=== PATIENT | male | born 1955 | race Caucasian/White ===

== ENCOUNTER → 2022-03-12 | Outpatient (CLI) | payer MEDICARE, SELFPAY ==
--- NOTE | 2022-03-12 06:46 | CT_ITS ---
HISTORY: HYDROCELE. TECHNIQUE: Helically acquired images were obtained of the abdomen and pelvis without oral or IV contrast. A radiation dose optimization technique was used for this scan. 555 images. COMPARISON: None.. FINDINGS: LOWER CHEST: Lung bases clear. BOWEL: Bowel including appendix nondilated. Colonic diverticulosis without focal pericolonic inflammatory change. PERITONEUM: No significant free fluid. LIVER/SPLEEN: Nonenlarged. GALLBLADDER/BILIARY TREE: Gallbladder present. KIDNEYS AND URETERS: No nephrolithiasis or hydronephrosis. PANCREAS/ADRENAL GLANDS: Unremarkable. VESSELS: No abdominal aortic aneurysm. Mild atherosclerosis. PELVIC ORGANS: Unremarkable. ABDOMINAL WALL: Large left inguinal hernia containing sigmoid colon extending into the scrotum without colonic wall thickening or surrounding inflammatory change. Trace left scrotal hydrocele. Large right inguinal hernia containing small bowel extending into the scrotum without small bowel wall thickening or surrounding inflammatory change. Tiny fat-containing umbilical hernia. BONES: Mild degenerative change. CT/Abdomen/Pelvis without Cont IMPRESSION: Large left inguinal hernia containing colon extending into the scrotum without evidence for colonic obstruction. Trace left scrotal hydrocele. Large right inguinal hernia containing small bowel extending into the scrotum without evidence for small bowel obstruction. Colonic diverticulosis without acute diverticulitis. Electronically Signed: Madeline Sloan MD at 9:23 EDT ,
== END | disposition home or self-care (01) ==
PROVIDERS: Referring Provider Urology; Visit Provider Urology
DX: N43.3 Hydrocele, unspecified (principal); K40.20 Bilateral inguinal hernia, without obstruction or gangrene, not specified as recurrent; K57.30 Diverticulosis of large intestine without perforation or abscess without bleeding
CPT/HCPCS: 74176; Q9967

== ENCOUNTER → 2022-03-27 | Outpatient (CLI) | payer MEDICARE, SELFPAY ==
--- NOTE | 2022-03-27 08:00 | PROSBIL_PTH ---
PATIENT: CAROLYN NUÑEZ LOC: [facility] U#:[id number] AGE/SX: 67/M ROOM: RE03/27/[address]: Dr. Jesus Brock MD : 1955 BED: DIS: 03/27/2022 SPEC #: [id number] RECD: 03/27/22 16:00 STATUS: ROBINSON REBennett #: [id number] TAMI: 03/27/22 08:[address]: Jesus Brock DEPT: SURGICAL PATHOLOGY RECD BY: Sharmin Ledesma ENTERED: 03/28/22 07:49 SP TYPE: PROST BX WILBERT DR: CHERYL High Tissues: A - PROSTATE RIGHT B - PROSTATE RIGHT C - PROSTATE RIGHT D - PROSTATE LEFT E - PROSTATE LEFT F - PROSTATE LEFT Procedures: PROSTATE BX HEADER OPERATION: Prostate biopsy PRE-OP DIAGNOSIS: Elevated PSA TISSUE SUBMITTED: A - Right apex, B - Right mid, C - Right base, D - Left apex, E - Left mid, F - Left base MICROSCOPIC DIAGNOSIS A. Right prostate, apex, core biopsy: Prostatic tissue, negative for malignancy. Focal atrophy and mild chronic inflammation. B. Right prostate, mid, core biopsy: Prostatic tissue, negative for malignancy. C. Right prostate, base, core biopsy: Prostatic tissue, negative for malignancy. D. Left prostate, apex, core biopsy: Prostatic tissue, negative for malignancy. Focal atrophy and mild chronic inflammation. E. Left prostate, mid, core biopsy: Prostatic tissue, negative for malignancy. Focal atrophy and mild chronic inflammation. F. Left prostate, base, core biopsy: Prostatic tissue, negative for malignancy. Focal mild chronic inflammation. /JANENE 03/31/22 MICROSCOPIC DESCRIPTION Slides are reviewed. GROSS DESCRIPTION A - Received is one container designated prostate, right apex. The specimen consists of two elongated fragments of light ely-white soft tissue measuring 1.3 and 1.8 cm in length and 0.1 cm in diameter. The specimen is totally submitted in one cassette. B - Received is one container designated prostate, right mid. The specimen consists of two elongated fragments of light ely-white soft tissue measuring 1 and 1.8 cm in length and 0.1 cm in diameter. The specimen is totally submitted in one cassette. C - Received is one container designated prostate, right base. The specimen consists of two elongated fragments of light ely-white soft tissue measuring 1.3 and 1.8 cm in length and 0.1 cm in diameter. The specimen is totally submitted in one cassette. D - Received is one container designated prostate, left apex. The specimen consists of two elongated fragments of light ely-white soft tissue each measuring 1.8 cm in length and 0.1 cm in diameter. The specimen is totally submitted in one cassette. E - Received is one container designated prostate, left mid. The specimen consists of two elongated fragments of light ely-white soft tissue each measuring 1.5 cm in length and 0.1 cm in diameter. The specimen is totally submitted in one cassette. F - Received is one container designated prostate, left base. The specimen consists of two elongated fragments of light ely-white soft tissue measuring 1 and 1.6 cm in length and 0.1 cm in diameter. The specimen is totally submitted in one cassette. / SJ:rg 03/28/2022 TC:3 CPT: G0146
== END | disposition home or self-care (01) ==
LOC: LABSPEC 16:49
PROVIDERS: Referring Provider Urology; Visit Provider Urology
DX: R97.20 Elevated prostate specific antigen [PSA] (principal)
CPT/HCPCS: 88305; G0416

== ENCOUNTER 2024-11-12 08:57 | Emergency (ER) | payer MEDICARE, SELFPAY ==
[2024-11-12] VITALS (13 sets, daily range): BP systolic 100–150; BP diastolic 47–113; PULSE 88–109; RESP 16–20; TEMP 36.6–38.8; O2SAT 93–100; BMI 32.5
--- NOTE | 2024-11-12 09:30 | CT_ITS ---
PROCEDURE: ABDOMEN/PELVIS W IV CONT ONLY 11/12/2024 REASON FOR EXAM: ABDOMINAL PAIN TECHNIQUE: ABDOMEN/PELVIS W IV CONT ONLY Coronal and Sagittal reconstruction series were provided. CONTRAST: 100 mL of Isovue 370 One or more dose reduction techniques were used (e.g., Automated exposure control, adjustment of the mA and/or kV according to patient size, use of iterative reconstruction technique. RADIATION DOSE SUMMARY: DLP: 1420 mGycm COMPARISON: 03/12/2022 FINDINGS: Limited sections of the lung bases demonstrate no focal pulmonary mass or consolidations. Bibasilar subsegmental atelectasis. The liver, spleen, pancreas, and both adrenal glands demonstrate no acute findings. The gallbladder is unremarkable. Stomach is fluid-filled with distended fluid-filled distal esophagus. Bilateral large inguinal hernias containing bowel. The right inguinal hernia containing small bowel and proximal colon with inflammation, fluid, and thickened and inflamed small bowel loops concerning for strangulation. Degree of small bowel wall inflammation concerning for enteritis of possibly ischemic etiology. Proximal to the right inguinal hernia, the small bowel loops are dilated measuring up to 4.3 cm with air and fluid filled layering concerning for small bowel obstruction. The left inguinal hernia contains large bowel without evidence of strangulation or obstruction. Appendix appears to be within the right inguinal hernia with appendicolith noted and slight inflammation although this is likely reactive to surrounding inflamed tissue. No pneumoperitoneum. The kidneys are unremarkable. The urinary bladder is nondistended. The pelvic structures are intact. There is no solid pelvic mass. Prostatomegaly to 5.2 cm. No significant lymphadenopathy. The aorta and IVC demonstrate no acute findings. Moderate atherosclerosis of the abdominal vasculature. Visualized osseous structures demonstrate no acute abnormality. CT/Abdomen/Pelvis W IV Cont ONLY IMPRESSION: The right inguinal hernia containing small bowel and proximal colon with inflam mation, fluid, and thickened and inflamed small bowel loops concerning for strangulation. Degree of small bowel wall inflammat ion concerning for enteritis of possibly ischemic etiology. Close loop within the right inguinal hernia is not entirely excluded . Proximal to the right inguinal hernia, the small bowel loops are dilated measuring up to 4.3 cm with air and fluid filled layering concerning for small bowel obstruction. The left inguinal hernia contains large bowel without evidence of strangulation or obstruction. Dr. Villegas was notified by Nadia Ortiz at 10:54 a.mJoss EST on 11/12/2024. Reading Location: [id number]
--- NOTE | 2024-11-12 09:33 | ED.VIS.GI ---
HPI <Dr. Shahbaz Villegas DO - Last Filed: 11/12/24 17:09> HPI - GI History of Present Illness Chief Complaint: Abd Pain Abdominal Pain/Flank Pain Worsened by: Nothing Relieved by: Nothing Nausea/Vomiting/Emesis GI Symptom: Positive for Nausea and Vomiting Quality: Positive for Nonbilious; Negative for Blood streaks, Coffee ground or Hematemesis Diarrhea/Melena/Hematochezia GI Symptom: Positive for Diarrhea and Melena; Negative for Hematochezia Stool Quality: Positive for Watery Associated Symptoms Associated Symptoms: Negative for Dysuria or Frequency Narrative Narrative: Patient presents with abdominal pain that has been getting worse over the last 5 days. Patient states it is gradually getting worse. Patient describes it as stabbing and dull. Patient states it radiates into his back. Patient states it is diffuse across his entire abdomen but worse in the lower abdomen and inguinal area. Patient states he has a known inguinal hernia but thinks it may be incarcerated or strangulated. Patient admits to some nausea and vomiting. Patient states his emesis is just yellow emesis. Patient admits to some diarrhea. Patient states he was having some black diarrhea couple days ago but states this is now just watery. Patient denies any urinary complaints. Patient admits to some subjective fevers. [facility] <Dr. Shahbaz Villegas DO - Last Filed: 11/12/24 17:09> [facility] Medical History (Updated 11/12/24 @ 11:[address] Shahbaz Villegas DO) Right inguinal hernia Allergy/AdvReac Type Severity Reaction Status Date / Time No Known Allergies Allergy Verified 11/12/24 09:43 Surgical History no surgical history no surgical history Social History Smoking Status: Never smoker ROS <Dr. Shahbaz Villegas DO - Last Filed: 11/12/24 17:09> ROS ED Constitutional Constitutional ED: Reports fever(s) and subjective; Denies chills Eyes Eyes: Denies blurry vision or change in vision ENT ENT ED: Denies rhinorrhea or sore throat Cardiovascular Cardiovascular: Denies chest pain or palpitations Respiratory/Chest Respiratory/Chest: Denies cough or dyspnea Gastrointestinal Gastrointestinal: Reports abdominal pain, diarrhea, nausea and vomiting Genitourinary Genitourinary ED: Denies dysuria or hematuria Musculoskeletal Musculoskeletal: Reports back pain; Denies neck pain Integumentary Denies abscess or rash Neurologic Neurologic: Denies headache(s) or weakness Allergic/Immunologic Allergic/Immunologic ED: Denies mouth swelling or urticaria EXAM <Dr. Shahbaz Villegas, DO - Last Filed: 11/12/24 17:09> Physical Exam Const Vital Signs: 11/12/24 08:57 11/12/24 10:59 11/12/24 11:00 Temperature 97.9 F 98.2 F 98.2 F Temperature Source Oral Temporal Temporal Pulse Rate 109 H 88 104 H Respiratory Rate 18 17 16 Blood Pressure 122/86 H 125/81 H 125/81 H Blood Pressure Mean 98 95 95 Pulse Ox 99 98 94 Oxygen Delivery Method Room Air Room Air Room Air 11/12/24 12:19 11/12/24 13:00 11/12/24 14:00 Temperature 100.7 F H 99.2 F H 99 F Temperature Source Oral Oral Oral Pulse Rate 96 99 101 H Respiratory Rate 18 18 20 H Blood Pressure 133/72 H 150/94 H 115/47 L Blood Pressure Mean 92 112 69 Pulse Ox 96 96 93 Oxygen Delivery Method Room Air Room Air Room Air 11/12/24 15:00 11/12/24 16:00 11/12/24 17:00 Temperature 99 F 101.6 F H 101.3 F H Temperature Source Oral Oral Oral Pulse Rate 102 H 106 H 102 H Respiratory Rate 18 18 18 Blood Pressure 118/59 L 141/113 H 125/89 H Blood Pressure Mean 76 122 101 Pulse Ox 100 93 94 Oxygen Delivery Method Room Air Room Air Room Air 11/12/24 18:00 11/12/24 19:00 11/12/24 20:00 Temperature 100.9 F H 101.8 F H 101.5 F H Temperature Source Oral Oral Oral Pulse Rate 106 H 98 107 H Respiratory Rate 18 18 18 Blood Pressure 130/72 H 133/73 H 100/86 H Blood Pressure Mean 91 93 90 Pulse Ox 94 93 94 Oxygen Delivery Method Room Air Room Air Room Air 11/12/24 20:00 Temperature 101.5 F H Temperature Source Pulse Rate 108 H Respiratory Rate 18 Blood Pressure 100/86 H Blood Pressure Mean 90 Pulse Ox 95 Oxygen Delivery Method Positive well nourished and well developed General Appearance ED: well developed and NAD HEENT Reports moist mucous membranes normocephalic and atraumatic Neck supple and no JVD Resp normal respiratory effort and clear to auscultation bilaterally Cardio regular rhythm Rate: tachycardic GI GI Narrative: There is a large right inguinal hernia. There is a left inguinal hernia. There is tenderness over the inguinal areas bilaterally, worse on the right. Bowel sounds are slightly hyperactive. There is increased pitch to the bowel sounds. Inspection: abdominal distention Palpation: tender epigastric, LLQ, RLQ, LUQ, RUQ, periumbilical and suprapubic Extremity Extremity Narrative: Pedal pulses are equal bilaterally. General Extremety ED: Negative for edema or tenderness General Extremity: Negative for edema Neuro CN's II-XII intact bilaterally, moves all extremities and no sensory deficits noted Sensorium / Orientation: alert Motor Exam: strength 5/5 throughout Psych mental status grossly normal <Dr. George Abraham MD - Last Filed: 11/12/24 20:34> Physical Exam Const Vital Signs: 11/12/24 08:57 11/12/24 10:59 11/12/24 11:00 Temperature 97.9 F 98.2 F 98.2 F Temperature Source Oral Temporal Temporal Pulse Rate 109 H 88 104 H Respiratory Rate 18 17 16 Blood Pressure 122/86 H 125/81 H 125/81 H Blood Pressure Mean 98 95 95 Pulse Ox 99 98 94 Oxygen Delivery Method Room Air Room Air Room Air 11/12/24 12:19 11/12/24 13:00 11/12/24 14:00 Temperature 100.7 F H 99.2 F H 99 F Temperature Source Oral Oral Oral Pulse Rate 96 99 101 H Respiratory Rate 18 18 20 H Blood Pressure 133/72 H 150/94 H 115/47 L Blood Pressure Mean 92 112 69 Pulse Ox 96 96 93 Oxygen Delivery Method Room Air Room Air Room Air 11/12/24 15:00 11/12/24 16:00 11/12/24 17:00 Temperature 99 F 101.6 F H 101.3 F H Temperature Source Oral Oral Oral Pulse Rate 102 H 106 H 102 H Respiratory Rate 18 18 18 Blood Pressure 118/59 L 141/113 H 125/89 H Blood Pressure Mean 76 122 101 Pulse Ox 100 93 94 Oxygen Delivery Method Room Air Room Air Room Air 11/12/24 18:00 11/12/24 19:00 11/12/24 20:00 Temperature 100.9 F H 101.8 F H 101.5 F H Temperature Source Oral Oral Oral Pulse Rate 106 H 98 107 H Respiratory Rate 18 18 18 Blood Pressure 130/72 H 133/73 H 100/86 H Blood Pressure Mean 91 93 90 Pulse Ox 94 93 94 Oxygen Delivery Method Room Air Room Air Room Air 11/12/24 20:00 Temperature 101.5 F H Temperature Source Pulse Rate 108 H Respiratory Rate 18 Blood Pressure 100/86 H Blood Pressure Mean 90 Pulse Ox 95 Oxygen Delivery Method [facility] <Dr. Shahbaz Villegas, DO - Last Filed: 11/12/24 17:09> [facility] Narrative Medical decision making narrative: Differential diagnosis includes bowel obstruction, perforation, electrolyte abnormality, incarcerated hernia, strangulated hernia, urinary tract infection, appendicitis, diverticulitis, and gastroenteritis. CT scan of the abdomen and pelvis will be obtained to assess for bowel obstruction, perforation, and incarcerated hernia. CBC will be obtained to assess for leukocytosis and anemia. Comprehensive metabolic profile will be obtained to assess for electrolyte abnormality and renal function. Lipase will be obtained to assess for pancreatitis. Urinalysis will be obtained to assess for urinary tract infection and hematuria. Lab Data Attestation: I reviewed the patient's lab results. Lab results narrative: CBC was reviewed. There is a mild leukocytosis of 12.7. The remainder is within normal limits. Comprehensive metabolic profile was reviewed. Anion gap was 16. BUN was slightly elevated at 20. Glucose was 192. Total bilirubin was slightly elevated at 1.50. The remainder is within normal limits. Lipase was reviewed and was normal at 14. Labs: Laboratory Results - last 24 hr 11/12/24 11/12/24 11/12/24 09:10 11:05 11:45 WBC 12.7 H Corrected WBC RBC 5.12 Hgb 14.1 Hct 42.8 MCV 83.6 MCH 27.5 MCHC 32.9 RDW Std Deviation 43.6 RDW Coeff of Devorah 14.3 Plt Count 316 MPV 11.0 Immature Gran % (Auto) 0.400 Neut % (Auto) 85.5 H Lymph % (Auto) 5.8 L Cross % (Auto) 8.1 Eos % (Auto) 0.0 Baso % (Auto) 0.2 Absolute Neuts (auto) 10.8 H Absolute Lymphs (auto) 0.74 L Total Counted Neutrophils % (Manual) Band Neutrophils % Lymphocytes % (Manual) Monocytes % (Manual) Eosinophils % (Manual) Basophils % (Manual) Metamyelocytes % Myelocytes % Promyelocytes % Blast Cells % Plasma Cell % (Manual) Other Cells % Nucleated RBC % 0 Nucleated RBCs/100 WBC Differential Comment Diff Path Review Hypersegmented Neuts Atypical Lymphocytes Reactive Lymphocytes Smudge Cells Toxic Granulation Toxic Vacuolation Dohle Bodies Radha Rods Platelet Estimate Plt Morphology Comment RBC Morphology Polychromasia Hypochromasia Basophilic Stippling Anisocytosis Microcytosis Macrocytosis Spherocytes Sickle Cells Target Cells Tear Drop Cells Ovalocytes Stomatocytes Mao[place] Bodies Ac Cells Bite Cells Crenated Cell Acanthocytes (Spur) Rouleaux Schistocytes Sodium 137 Potassium 3.3 Chloride 98 Carbon Dioxide 22.7 Anion Gap 16 H BUN 20 H Creatinine 0.97 Estim Creat Clear Calc 86.33 Est GFR (MDRD) Non-Af 85 BUN/Creatinine Ratio 20.6 H Glucose 192 H Lactic Acid < 1.0 Calcium 9.7 Total Bilirubin 1.50 H AST 21 ALT 20 Alkaline Phosphatase 126 Total Protein 7.1 Albumin 4.1 Globulin 3.0 Albumin/Globulin Ratio 1.4 Lipase 14 Urine Color Yellow Urine Clarity Clear Urine pH 6.5 Ur Specific [place] 1.010 Urine Protein 30 H Urine Glucose (UA) Normal Urine Ketones 5 H Urine Occult Blood 25 H Urine Nitrite Positive H Urine Bilirubin Negative Urine Urobilinogen 4 H Ur Leukocyte Esterase 25 H Urine RBC 0 SEEN Urine WBC 0-5 SEEN Ur Squamous Epith Cells 0 SEEN Urine Bacteria 0 SEEN Urine Mucus 0 SEEN 11/12/24 11/12/24 11/12/24 19:00 19:00 19:50 WBC Cancelled 15.4 H Corrected WBC Cancelled RBC Cancelled 5.08 Hgb Cancelled 13.6 Hct Cancelled 42.1 MCV Cancelled 82.9 MCH Cancelled 26.8 L MCHC Cancelled 32.3 RDW Std Deviation Cancelled 43.7 RDW Coeff of Devorah Cancelled 14.6 Plt Count Cancelled 291 MPV Cancelled 10.6 Immature Gran % (Auto) Cancelled 0.300 Neut % (Auto) Cancelled 85.5 H Lymph % (Auto) Cancelled 4.1 L Cross % (Auto) Cancelled 9.8 Eos % (Auto) Cancelled 0.0 Baso % (Auto) Cancelled 0.3 Absolute Neuts (auto) Cancelled 13.2 H Absolute Lymphs (auto) Cancelled 0.63 L Total Counted Cancelled Neutrophils % (Manual) Cancelled Band Neutrophils % Cancelled Lymphocytes % (Manual) Cancelled Monocytes % (Manual) Cancelled Eosinophils % (Manual) Cancelled Basophils % (Manual) Cancelled Metamyelocytes % Cancelled Myelocytes % Cancelled Promyelocytes % Cancelled Blast Cells % Cancelled Plasma Cell % (Manual) Cancelled Other Cells % Cancelled Nucleated RBC % Cancelled 0 Nucleated RBCs/100 WBC Cancelled Differential Comment Cancelled Diff Path Review Cancelled Hypersegmented Neuts Cancelled Atypical Lymphocytes Cancelled Reactive Lymphocytes Cancelled Smudge Cells Cancelled Toxic Granulation Cancelled Toxic Vacuolation Cancelled Dohle Bodies Cancelled Radha Rods Cancelled Platelet Estimate Cancelled Plt Morphology Comment Cancelled RBC Morphology Cancelled Cancelled Polychromasia Cancelled Hypochromasia Cancelled Basophilic Stippling Cancelled Anisocytosis Cancelled Microcytosis Cancelled Macrocytosis Cancelled Spherocytes Cancelled Sickle Cells Cancelled Target Cells Cancelled Tear Drop Cells Cancelled Ovalocytes Cancelled Stomatocytes Cancelled Mao-[place] Bodies Cancelled [place] Cells Cancelled Bite Cells Cancelled Crenated Cell Cancelled Acanthocytes (Spur) Cancelled Rouleaux Cancelled Schistocytes Cancelled Sodium 138 Potassium 3.8 Chloride 103 Carbon Dioxide 20.9 L Anion Gap 14 BUN 20 H Creatinine 0.96 Estim Creat Clear Calc 87.23 Est GFR (MDRD) Non-Af 86 BUN/Creatinine Ratio 20.6 H Glucose 133 H Lactic Acid Cancelled 1.4 Calcium 9.0 Total Bilirubin AST ALT Alkaline Phosphatase Total Protein Albumin Globulin Albumin/Globulin Ratio Lipase Urine Color Urine Clarity Urine pH Ur Specific [place] Urine Protein Urine Glucose (UA) Urine Ketones Urine Occult Blood Urine Nitrite Urine Bilirubin Urine Urobilinogen Ur Leukocyte Esterase Urine RBC Urine WBC Ur Squamous Epith Cells Urine Bacteria Urine Mucus Radiography Diagnostic Testing: Clinical Impression(s) from Imaging Studies Abdomen/Pelvis CT 11/12/24 09:30 IMPRESSION: The right inguinal hernia containing small bowel and proximal colon with inflammation, fluid, and thickened and inflamed small bowel loops concerning for strangulation. Degree of small bowel wall inflammation concerning for enteritis of possibly ischemic etiology. Close loop within the right inguinal hernia is not entirely excluded. Proximal to the right inguinal hernia, the small bowel loops are dilated measuring up to 4.3 cm with air and fluid filled layering concerning for small bowel obstruction. The left inguinal hernia contains large bowel without evidence of strangulation or obstruction. Dr. Villegas was notified by Nadia Ortiz at 10:54 a.m. EST on 11/12/2024. Reading Location: [facility] CT scan of the abdomen and pelvis was obtained. There is a right inguinal hernia containing small bowel proximal colon with inflammation, fluid, and and thickened and inflamed small bowel loops concerning for strangulation. There is a degree of small bowel wall inflammation concerning for ischemic etiology. There are dilated loops of bowel concerning for small bowel obstruction. There is also a left inguinal hernia containing large bowel but there is no evidence of strangulation or obstruction. This was interpreted by the radiologist was also independently reviewed by myself. Management Discussion w/another healthcare provider: [employer] (Dr. Swanson) Treatment and Re-Evaluation :: Patient was given IV fluids, morphine, and Zofran. Patient was advised of his findings. Patient was given a dose of Zosyn here. Patient was given a repeat dose of morphine. Case was discussed with Dr. Swanson. He will be in to evaluate the patient for possible surgery. Patient was maintained NPO. Patient and family understood and were agreeable with the plan. All questions were answered. Dr. Swanson was in to evaluate the patient. He stated this would be better treated by a hernia surgeon specialist. He recommended transferring the patient to [facility]. Case was discussed with Dr. Palacio at [facility]. He excepted the patient to be transferred there. Patient and family understood and were agreeable with the plan. Care of the patient will be turned over to the oncoming physician pending transfer. <Dr. George Abraham MD - Last Filed: 11/12/24 20:34> [facility] Lab Data Labs: Laboratory Results - last 24 hr 11/12/24 11/12/24 11/12/24 09:10 11:05 11:45 WBC 12.7 H Corrected WBC RBC 5.12 Hgb 14.1 Hct 42.8 MCV 83.6 MCH 27.5 MCHC 32.9 RDW Std Deviation 43.6 RDW Coeff of Devorah 14.3 Plt Count 316 MPV 11.0 Immature Gran % (Auto) 0.400 Neut % (Auto) 85.5 H Lymph % (Auto) 5.8 L Cross % (Auto) 8.1 Eos % (Auto) 0.0 Baso % (Auto) 0.2 Absolute Neuts (auto) 10.8 H Absolute Lymphs (auto) 0.74 L Total Counted Neutrophils % (Manual) Band Neutrophils % Lymphocytes % (Manual) Monocytes % (Manual) Eosinophils % (Manual) Basophils % (Manual) Metamyelocytes % Myelocytes % Promyelocytes % Blast Cells % Plasma Cell % (Manual) Other Cells % Nucleated RBC % 0 Nucleated RBCs/100 WBC Differential Comment Diff Path Review Hypersegmented Neuts Atypical Lymphocytes Reactive Lymphocytes Smudge Cells Toxic Granulation Toxic Vacuolation Dohle Bodies Radha Rods Platelet Estimate Plt Morphology Comment RBC Morphology Polychromasia Hypochromasia Basophilic Stippling Anisocytosis Microcytosis Macrocytosis Spherocytes Sickle Cells Target Cells Tear Drop Cells Ovalocytes Stomatocytes Mao-[place] Bodies Ac Cells Bite Cells Crenated Cell Acanthocytes (Spur) Rouleaux Schistocytes Sodium 137 Potassium 3.3 Chloride 98 Carbon Dioxide 22.7 Anion Gap 16 H BUN 20 H Creatinine 0.97 Estim Creat Clear Calc 86.33 Est GFR (MDRD) Non-Af 85 BUN/Creatinine Ratio 20.6 H Glucose 192 H Lactic Acid < 1.0 Calcium 9.7 Total Bilirubin 1.50 H AST 21 ALT 20 Alkaline Phosphatase 126 Total Protein 7.1 Albumin 4.1 Globulin 3.0 Albumin/Globulin Ratio 1.4 Lipase 14 Urine Color Yellow Urine Clarity Clear Urine pH 6.5 Ur Specific [place] 1.010 Urine Protein 30 H Urine Glucose (UA) Normal Urine Ketones 5 H Urine Occult Blood 25 H Urine Nitrite Positive H Urine Bilirubin Negative Urine Urobilinogen 4 H Ur Leukocyte Esterase 25 H Urine RBC 0 SEEN Urine WBC 0-5 SEEN Ur Squamous Epith Cells 0 SEEN Urine Bacteria 0 SEEN Urine Mucus 0 SEEN 11/12/24 11/12/24 11/12/24 19:00 19:00 19:50 WBC Cancelled 15.4 H Corrected WBC Cancelled RBC Cancelled 5.08 Hgb Cancelled 13.6 Hct Cancelled 42.1 MCV Cancelled 82.9 MCH Cancelled 26.8 L MCHC Cancelled 32.3 RDW Std Deviation Cancelled 43.7 RDW Coeff of Devorah Cancelled 14.6 Plt Count Cancelled 291 MPV Cancelled 10.6 Immature Gran % (Auto) Cancelled 0.300 Neut % (Auto) Cancelled 85.5 H Lymph % (Auto) Cancelled 4.1 L Cross % (Auto) Cancelled 9.8 Eos % (Auto) Cancelled 0.0 Baso % (Auto) Cancelled 0.3 Absolute Neuts (auto) Cancelled 13.2 H Absolute Lymphs (auto) Cancelled 0.63 L Total Counted Cancelled Neutrophils % (Manual) Cancelled Band Neutrophils % Cancelled Lymphocytes % (Manual) Cancelled Monocytes % (Manual) Cancelled Eosinophils % (Manual) Cancelled Basophils % (Manual) Cancelled Metamyelocytes % Cancelled Myelocytes % Cancelled Promyelocytes % Cancelled Blast Cells % Cancelled Plasma Cell % (Manual) Cancelled Other Cells % Cancelled Nucleated RBC % Cancelled 0 Nucleated RBCs/100 WBC Cancelled Differential Comment Cancelled Diff Path Review Cancelled Hypersegmented Neuts Cancelled Atypical Lymphocytes Cancelled Reactive Lymphocytes Cancelled Smudge Cells Cancelled Toxic Granulation Cancelled Toxic Vacuolation Cancelled Dohle Bodies Cancelled Radha Rods Cancelled Platelet Estimate Cancelled Plt Morphology Comment Cancelled RBC Morphology Cancelled Cancelled Polychromasia Cancelled Hypochromasia Cancelled Basophilic Stippling Cancelled Anisocytosis Cancelled Microcytosis Cancelled Macrocytosis Cancelled Spherocytes Cancelled Sickle Cells Cancelled Target Cells Cancelled Tear Drop Cells Cancelled Ovalocytes Cancelled Stomatocytes Cancelled Mao-[place] Bodies Cancelled Ac Cells Cancelled Bite Cells Cancelled Crenated Cell Cancelled Acanthocytes (Spur) Cancelled Rouleaux Cancelled Schistocytes Cancelled Sodium 138 Potassium 3.8 Chloride 103 Carbon Dioxide 20.9 L Anion Gap 14 BUN 20 H Creatinine 0.96 Estim Creat Clear Calc 87.23 Est GFR (MDRD) Non-Af 86 BUN/Creatinine Ratio 20.6 H Glucose 133 H Lactic Acid Cancelled 1.4 Calcium 9.0 Total Bilirubin AST ALT Alkaline Phosphatase Total Protein Albumin Globulin Albumin/Globulin Ratio Lipase Urine Color Urine Clarity Urine pH Ur Specific [place] Urine Protein Urine Glucose (UA) Urine Ketones Urine Occult Blood Urine Nitrite Urine Bilirubin Urine Urobilinogen Ur Leukocyte Esterase Urine RBC Urine WBC Ur Squamous Epith Cells Urine Bacteria Urine Mucus Radiography Chest X-Ray - ED: 1 View (KUB was independent reviewed interpreted by me at 2032. NG is in proper position. Patient has what appears to be early small bowel obstruction.) Diagnostic Testing: Clinical Impression(s) from Imaging Studies Abdomen/Pelvis CT 11/12/24 09:30 IMPRESSION: The right inguinal hernia containing small bowel and proximal colon with inflammation, fluid, and thickened and inflamed small bowel loops concerning for strangulation. Degree of small bowel wall inflammation concerning for enteritis of possibly ischemic etiology. Close loop within the right inguinal hernia is not entirely excluded. Proximal to the right inguinal hernia, the small bowel loops are dilated measuring up to 4.3 cm with air and fluid filled layering concerning for small bowel obstruction. The left inguinal hernia contains large bowel without evidence of strangulation or obstruction. Dr. Villegas was notified by Nadia Ortiz at 10:54 a.m. EST on 11/12/2024. Reading Location: [facility] Treatment and Re-Evaluation Comments:: Patient was reexamined at 184. He has a very large right hernia. There are some discoloration of the scrotum. There is mild tenderness. There is no crepitus or subcutaneous air noted. Patient is a very mild yeast infection right groin. Since patient arrived. Approximately 9 AM we will repeat his blood work. Will have the hospital secretary contact [facility] for ED to ED transfer. Spoke with Dr. Nicole who is the general surgery on-call for [facility]. Patient be transferred ED to ED. She requested an NG. Plan is OR once he arrives in the ER. Discharge Plan Triage Chief Complaint: Abd Pain ED Provider: Shahbaz Villegas Dx/Rx/DC Orders Clinical Impression: Strangulated inguinal hernia, Abdominal pain, Leukocytosis Primary Care Provider: Cira Parsons Referrals: Cira Parsons PA [Primary Care Provider] - Print Language: Palauan Disposition Disposition: Acute Care Hospital Discharge Location: [facility]
[2024-11-12] MEDS: Ondansetron 4 MG/2 ML Vial IV ×2 (09:44→16:02)
[2024-11-12] MEDS: 0.9% Normal Saline (1000mL) 1,000 ML 999 ML IV (09:44)
[2024-11-12] MEDS: Morphine 4 MG/ML Syringe IV ×2 (09:45→11:23)
[2024-11-12 09:46] LABS: Absolute Lymphocyte Count 0.74 X10^3/uL (0.83-4.51); Absolute Neutrophil Count 10.8 X10^3/uL (2.0-7.7); Basophil# 0.02 X10^3/uL; Basophil% 0.2 % (0-1); Hematocrit 42.8 % (40-54); Hemoglobin 14.1 g/dL (13.0-16.5); Lymphocyte # 0.74 X10^3/ul (0.83-4.51); Lymphocyte % 5.8 % (19-41); Mean Corp Hgb Conc 32.9 g/dL (32-36); Mean Corpuscular Hgb 27.5 pg (27.0-32.0); Mean Corpuscular Volume 83.6 fL (80-94); Monocyte# 1.03 X10^3/uL; Monocyte% 8.1 % (0-10); NRBC Flagged by Analyzer 0 % (0-5); Neutrophil # 10.82 X10^3/uL (2.7-7.7); Neutrophil % 85.5 % (47-70); Platelet Count 316 K/mm3 (150-450); RBC Distribution Width CV 14.3 % (11.6-14.6); RBC Distribution Width SD 43.6 fl (35.1-43.9); Red Blood Count 5.12 M/mm3 (4.6-6.2); White Blood Count 12.7 K/mm3 (4.4-11.0)
--- OUTSIDE RECORDS SUMMARY | 2024-11-12 09:48 | XMS RPT_ITS | CCD ---
Author Organization [facility] Care Team Providers Care Leather Polisher Name Role Phone GERA JACK Attending Unavailable GERA JACK Primary Care Unavailable GERA JACK Admitting Unavailable Parsons, Cira Primary Care Unavailable Jesus Brock Attending Unavailable VinodJesus Referring Unavailable Parsons, Cira Primary Care Unavailable VinodJesus Attending Unavailable VinodJesus Referring Unavailable Issa ARRIETA, Cira J Unavailable Urologist Provider Unavailable Unavailable Qing Fall LPN Unavailable Bambi Mazariegos MA Unavailable Unavailable Sam Galarza MD Unavailable Marlin Thomas Unavailable Unavailable Lilly Velasquez MA Unavailable Unavailable Clemente MITCHELL, Samantha Jackson Unavailable Unavaila evie Fortune LPN, Martha Unavailable Unavailable Rosalio ARRIETA, Bre Licona Unavailable Trish ANDINO, Cassy Driscoll Unavailable Unavailab hetal Li LPN, Melinda Monreal Unavailable Unavailab le Unavailable Unavailable Ej AMBROCIO, Indira Unavailable Unavailable Jasmeet ANDINO, Sylvie Unavailable Unavailable Medications Current Medications Medication Drug Class(es) Dates Sig (Normalized) Sig (Original) finasteride 5 mg oral tablet (5 sources) 5-alpha Reductase Inhibitor Start: 12-16-2022 finasteride 5 mg tablet ; 1 (one) tablet daily for 0 days Quantity: 30 {Tablet} Refills: 5 Ordered: 16-Dec-2022 BELÉN Mazariegos Start: 16-Dec-2022 tamsulosin hydrochloride 0.4 mg oral capsule (5 sources) alpha-Adrenergic Erin Start: 12-16-2022 tamsulosin 0.4 mg capsule ; 1 (one) capsule daily for 0 days Quantity: 30 {Capsule} Refills: 5 Ordered: 16-Dec-2022 BELÉN Mazariegos Start: 16-Dec-2022 Completed/Discontinued Medications Medication Drug Class(es) Dates Sig (Normalized) Sig (Original) atorvastatin 20 mg oral tablet (5 sources) HMG-CoA Reductase Inhibitor Start: 09-05-2021 End: 10-05-2021 take 1 tablet by mouth once daily Atorvastatin Calcium 20 MG Oral Tablet ; 1 (one) Tablet daily for 30 days Quantity: 30 {Tablet} Refills: 0 Ordered: 05-Sep-2021 BERNY Parsons Start: 05-Sep-2021 End: 05-Oct-2021 Status: Inactive predniSONE 20 mg oral tablet (5 sources) Start: 02-18-2021 End: 09-05-2021 take 3 tablets by mouth once daily, then take 2 tablets by mouth once daily, then take 1 tablet by mouth once daily, then take 0.5 tablet by mouth once daily predniSONE 20 MG Oral Tablet ; 1 (one) Tablet as directed for 0 days Quantity: 20 {Tablet} Refills: 0 Ordered: 05-Sep-2021 THU Fortune Start: 18-Feb-2021 End: 05-Sep-2021 Status: Inactive Comments: Take 3tabs qd for 3 days thenTake 2tabs qd for 3 days thenTake 1tab qd for 3 days thenTake 1/2tab qd for 4 days. Comment on above: Take 3tabs qd for 3 days thenTake 2tabs qd for 3 days thenTake 1tab qd for 3 days thenTake 1/2tab qd for 4 days. Problems Active Problems Problem Classification Problem Date Documented Da te Episodic/Chronic Disorders of lipid metabolism (20 sources) Hyperlipidemia; Translations: [Hyperlipidemia, unspecified] 12-15-2022 Chronic Hyperplasia of prostate (10 sources) Benign prostatic hypertrophy without outflow obstruction; Translations: [Benign prostatic hyperplasia without lower urinary tract symptoms] 12-16-2022 Chronic Immunizations and screening for infectious disease (2 sources) Contact with and (suspected) exposure to other viral communicable diseases; Translations: [Contact with and (suspected) exposure to other viral communicable diseases] Onset: 04-04-2020 Episodic Other aftercare (10 sources) Removal of sutures done; Translations: [Encounter for removal of sutures] 06-10-2016 Episodic Other connective tissue disease (11 sources) Pain in right lower limb; Translations: [Pain in right leg] 12-02-2022 Episodic Other male genital disorders (1 source) Hydrocele, unspecified; Translations: [Hydrocele, unspecified] Onset: 03-18-2022 Episodic Other non-traumatic joint disorders (17 sources) Bilateral pain of joint of hands; Translations: [Pain in joints of right hand] 12-02-2022 Episodic Other screening for suspected conditions (not mental disorders or infectious disease) (20 sources) Elevated prostate specific antigen [PSA]; Translations: [Raised prostate specific antigen] Onset: 03-28-2022 12-15-2022 Episodic Other skin disorders (15 sources) Sebaceous cyst of skin; Translations: [Sebaceous cyst] 02-18-2021 Episodic Residual codes; unclassified (17 sources) Colon cancer screening declined; Translations: [Procedure and treatment not carried out because of patient's decision for unspecified reasons] 12-02-2022 Episodic Unclassified (1 source) COVID-19; Translations: [COVID-19] Onset: 04-04-2020 Unclassified (5 sources) Non-Contributory Problem List/Past Medical History 02-18-2021 Unclassified (5 sources) Well adult male - The patient feels well with minor complaints, has good energy level and is sleeping well. The patient has a balanced diet and takes supplemental vitamins. The patient does not exercise. The patient sleeps 9 hours per night. Note for Well adult male: Patient has labs to be reviewed today.Patient declines colon cancer screening at this time.Patient would like to discuss chronic pain in his hands. He reports that he has had pain in both hands for many years. He will sometimes get what he describes as a burning neuropathic pain, but most days will have aching pain in his fingers and hands. He notes stiffness throughout the day and reports that he is unable to completely make a fist. He has not had any workup for this as he has assumed that it is arthritis. 09-05-2021 Past or Other Problems Problem Classification Problem Date Documented Da te Episodic/Chronic Unclassified (5 sources) MCR Well Adult - In general the patient feels well with no complaints, has good energy level and is sleeping well. The patient has a balanced diet. The patient does not exercise and sleeps 6 hours per night. The patient denies having trouble with bathing, dressing/grooming, toileting, preparing meals and ambulating. The patient denies having trouble with grocery shopping, driving, use of telephone, housework, laundry, preparing/taking medications and finances. The patient has a Healthcare Power of Quality Control Assistant and a Living Will. Note for MCR Well Adult: Patient last followed up with urology regarding elevated PSA in March 2022. He had a negative biopsy at that time.Patient is not fasting at this time. 12-02-2022 Unclassified (5 sources) consult of blood work - Patient presents today to review blood work that he had completed in early October 2021. Patient was told of these results over the phone and declined referrals to urology and ortho at that time. 11-15-2021 Unclassified (5 sources) Back pain - The onset of the back pain has been gradual and has been occurring in a persistent pattern for 8 days (prior to this he was having pain of his right knee at the end of his work day, would be limping. No known injury to his back that patient is aware of.). The course has been constant. The pain is characterized as a dull ache (buttocks, thigh) and burning (right lower leg). The pain is located in the lower back (on the right side/ right buttock) and radiates to the right thigh (anterior and posterior thighs, also has pain on the lateral side of the lower leg to the ankle). There are no precipitating factors. The symptoms are aggravated by prolonged sitting (any length of time causes his pain to be worse with sitting) and are relieved by ice. The pain has been associated with chills, while there has been no associated dysuria, fever, flank pain, hip pain, history of back surgery, history of disc prolapse, incontinence of stool, incontinence of urine, leg weakness or paresthesias in leg. Note for Back pain: Been seeing Chiropractor Dr. Orellana for treatments, he does get some relief from the treatments. He did have xrays done. Is suggesting patient to be put on prednisone.Patient was taking NSAIDs to help with the pain, but has not had any the past 2 days. 02-18-2021 Unclassified (5 sources) Skin lesion - The skin lesion appeared rapidly and has been occurring for years. It has been unchanging in size. The lesion is characterized as red and raised above the skin. The lesion is located on the neck. 06-04-2016 Unclassified (5 sources) swollen area on right side of neck - Pt has noted a swollen area on right side of his neck x 4-6 months. Pt only c/o pain to area after tried to express drainage from it by squeezing it about 1 week ago. Lump has gradually increased in size. No drainage noted. Afebrile. Doesn't complain for sore throat or any other symptoms. No recent weight loss or fevers. No surrounding swollen LNs. Initially there was an ingrown hair in the area. 11-17-2011 Unclassified (2 sources) MCR Well Adult - In general the patient does not feel well (Due to back/leg pain. Further details recorded below.), has decreased energy level and is sleeping poorly (Due to pain.). The patient has a balanced diet and takes supplemental vitamins. The patient does not exercise and sleeps 6 hours per night. The patient denies having trouble with bathing, dressing/grooming and toileting, but admits to having trouble with preparing meals or ambulating (uses a cane due to back pain currently.). The patient denies having trouble with driving, use of telephone, preparing/taking medications and finances, but admits to having trouble with grocery shopping, housework or laundry. The patient has a Healthcare Power of Quality Control Assistant and a Living Will. Note for MCR Well Adult: Has labs to be reviewed today.Patient reports that he has been having pain in his lower back, right hip/buttock, and right leg since . He does not recall any injury before this pain started, though he does report having a physically demanding job. He has been seeing a chiropractor for adjustments and feels that this is helping. He has been taking low doses of Tylenol (500mg) and Ibuprofen (400mg) as needed and feels that this has been only minimally helpful. He does report significant improvement in his pain from last week to this week. 10-13-2024 Results Test Name Value Interpretation Reference Range Facility COMPREHENSIVE METABOLIC PANE [facility] 10-07-2024 Albumin [Mass/Vol] 4.5 g/dL Normal 3.6-5.1 [facility] Comment on above: Performed By: #### 1 0231, 7599, 5363 #### [facility] of [address], [address] [place] [address] Home Health Clinician: Miah Grijalva MD Albumin/Globulin [Mass ratio] 2.0 {ratio} Normal 1.0-2.5 [facility] Comment on above: Performed By: #### 1 0231, 7599, 5363 #### [facility] of [address], [address] [place] [address] Home Health Clinician: Miah Grijalva MD ALP [Catalytic activity/Vol] 126 U/L Normal 35-144 [facility] Comment on above: Performed By: #### 1 023, 7599, 5363 #### [facility] of [address], [address] [place] [address] Home Health Clinician: Miah Grijalva MD ALT [Catalytic activity/Vol] 15 U/L Normal 9-46 [facility] Comment on above: Performed By: #### 1 023, 7599, 5363 #### [facility] of [address], [address] [place] [address] Home Health Clinician: Miah Grijalva MD AST [Catalytic activity/Vol] 18 U/L Normal 10-35 [facility] Comment on above: Performed By: #### 1 023, 7599, 5363 #### [facility] of [place] [address] Home Health Clinician: Miah Grijalva MD Bilirubin [Mass/Vol] 0.8 mg/dL Normal 0.2-1.2 [facility] Comment on above: Performed By: #### 1 0231, 7599, 5363 #### [facility] of [place] [address] Home Health Clinician: Miah Grijalva MD BUN/CREATININE RATIO SEE NOTE: Normal 6-22 [facility] Comment on above: Result Comment: Not Reported: BUN and Creatinine are within reference range. Performed By: #### 1 0231, 7599, 5363 #### [facility] of [address], [address] [place] [address] Home Health Clinician: Miah Grijalva MD Calcium [Mass/Vol] 9.9 mg/dL Normal 8.6-10.3 [facility] Comment on above: Performed By: #### 1 230, 7599, 5363 #### [facility] of [place] [address] Home Health Clinician: Miah Grijalva MD Chloride [Moles/Vol] 102 mmol/L Normal 98-110 [facility] Comment on above: Performed By: #### 1 023, 7599, 5363 #### [facility] of [place] [address] Home Health Clinician: Miah Grijalva MD CO2 [Moles/Vol] 26 mmol/L Normal 20-32 [facility] Comment on above: Performed By: #### 1 230, 7599, 5363 #### [facility] of [place] [address] Home Health Clinician: Miah Grijalva MD Creatinine [Mass/Vol] 0.74 mg/dL Normal 0.70-1.35 [facility] Comment on above: Performed By: #### 1 230, 7599, 5363 #### [facility] [place] [address] Home Health Clinician: Miah Grijalva MD GFR/1.73 sq M.predicted among non-blacks MDRD (S/P/Bld) [Vol rate/Area] 98 mL/min/{1.73_m2} Normal > OR = 60 [facility] Comment on above: Performed By: #### 1 023, 7599, 5363 #### [facility] of [place] [address] Home Health Clinician: Miah Grijalva MD Globulin (S) [Mass/Vol] 2.3 g/dL Normal 1.9-3.7 [facility] Comment on above: Performed By: #### 1 023, 7599, 5363 #### [facility] [place] [address] Home Health Clinician: Miah Grijalva MD Glucose [Mass/Vol] 114 mg/dL High 65-99 [facility] Comment on above: Result Comment: Fasting reference interval For someone without known diabetes, a glucose value between 100 and 125 mg/dL is consistent with prediabetes and should be confirmed with a follow-up test. Performed By: #### 1 0231, 0, 5363 #### [facility] [place] [address] Home Health Clinician: Miah Grijalva MD Potassium [Moles/Vol] 4.2 mmol/L Normal 3.5-5.3 [facility] Comment on above: Performed By: #### 1 023, 0, 5363 #### [facility] [place] [address] Home Health Clinician: Miah Grijalva MD Protein [Mass/Vol] 6.8 g/dL Normal 6.1-8.1 [facility] Comment on above: Performed By: #### 1 023, 0, 5363 #### [facility] [place] [address] Home Health Clinician: Miah Grijalva MD Sodium [Moles/Vol] 138 mmol/L Normal 135-146 [facility] Comment on above: Performed By: #### 1 023, 7599, 5363 #### [facility] [place] [address] Home Health Clinician: Miah Grijalva MD Urea nitrogen [Mass/Vol] 17 mg/dL Normal 7-25 [facility] Comment on above: Performed By: #### 1 0231, 0, 5363 #### [facility] [place] [address] Home Health Clinician: Miah Grijalva MD LIPID PANEL, [facility] 05- Cholesterol [Mass/Vol] 242 mg/dL High <200 [facility] Comment on above: Performed By: #### 1 0231, 7599, 5363 #### [facility] [address], [address] [place] [address] Home Health Clinician: Miah Grijalva MD Cholesterol in HDL [Mass/Vol] 59 mg/dL Normal > OR = 40 [facility] Comment on above: Performed By: #### 1 230, 7599, 5363 #### [facility] [address], [address] [place] [address] Home Health Clinician: Miah Grijalva MD Cholesterol in LDL [Mass/Vol] 162 mg/dL High [facility] Comment on above: Result Comment: Refe rence range: <100 Desirable range <100 mg/dL for primary prevention; <70 mg/dL for patients with CHD or diabetic patients with > or = 2 CHD risk factors. LDL-C is now calculated using the Temitope calculation, which is a validated novel method providing better accuracy than the Friedewald equation in the estimation of LDL-C. Zeb SS et al. MICHELL. 2013;310(19): 2287-2778 (http://education.[employer]/faq/RHO238) Performed By: #### 1 230, 7599, 5363 #### [facility] [place] [address] Home Health Clinician: Miah Grijalva MD Cholesterol.total/C holesterol in HDL [Mass ratio] 4.1 {ratio} Normal <5.0 [facility] Comment on above: Performed By: #### 1 230, 7599, 5363 #### [facility] [address], [address] [place] [address] Home Health Clinician: Miah Grijalva MD NON HDL CHOLESTEROL 183 mg/dL (calc) High <130 [facility] Comment on above: Result Comment: For patients with diabetes plus 1 major ASCVD risk factor, treating to a non-HDL-C goal of <100 mg/dL (LDL-C of <70 mg/dL) is considered a therapeutic option. Performed By: #### 1 230, 7599, 5363 #### [facility] [address], [address] [place] [address] Home Health Clinician: Miah Grijalva MD Triglyceride [Mass/Vol] 100 mg/dL Normal <150 [facility] Comment on above: Performed By: #### 1 4751, 0850, 5364 #### [facility] [address], [address] [place] [address] Home Health Clinician: Miah Grijalva MD PSA, TOTALon 10-07-2024 PSA, TOTAL 6.04 ng/mL High < OR = 4.00 [facility] Comment on above: Result Comment: The total PSA value from this assay system is standardized against the WHO standard. The test result will be approximately 20% lower when compared to the equimolar-standardized total PSA (Ritchie Batsheva). Comparison of serial PSA results should be interpreted with this fact in mind. This test was performed using the Siemens chemiluminescent method. Values obtained from different assay methods cannot be used interchangeably. PSA levels, regardless of value, should not be interpreted as absolute evidence of the presence or absence of disease. Performed By: #### 1 5311, 2010, 5350 #### [facility] [address], [address] [place] [address] Home Health Clinician: Miah Grijalva MD Laboratory - Chemistry and C hemistry - challengeon 10-06-2024 Albumin [Mass/Vol] 4.5 g/dL Normal 3.6 - 5.1 g/dL [facility] [employer] Albumin/Globulin [Mass ratio] 2.0 {ratio} Normal 1.0 - 2.5 [facility], [facility].; [place] [employer] [facility] ALP [Catalytic activity/Vol] 126 U/L Normal 35 - 144 U/L [place] [employer] [facility] [employer] ALT [Catalytic activity/Vol] 15 U/L Normal 9 - 46 U/L [place] [employer] [facility], [facility].; [employer] AST [Catalytic activity/Vol] 18 U/L Normal 10 - 35 U/L [facility] [employer] Bilirubin [Mass/Vol] 0.8 mg/dL Normal 0.2 - 1.2 mg/dL [place] [employer] [facility], [facility].; [facility] Calcium [Mass/Vol] 9.9 mg/dL Normal 8.6 - 10. 3 mg/dL [facility], [facility].; [facility], [facility]. Chloride [Moles/Vol] 102 mmol/L Normal 98 - 110 mmol/L [facility], [facility].; [facility] Cholesterol [Mass/Vol] 242 mg/dL Abnormal [facility], [facility].; [facility], [facility]. Cholesterol in HDL [Mass/Vol] 59 mg/dL Normal [facility], [facility].; [facility] Cholesterol in LDL [Mass/Vol] 162 mg/dL Abnormal [facility], [facility].; [facility], [facility]. CO2 [Moles/Vol] 26 mmol/L Normal 20 - 32 mmol/L [facility], [facility].; [facility], [facility]. Creatinine [Mass/Vol] 0.74 mg/dL Normal 0.70 - 1.35 mg/dL [facility], [facility].; [facility], [facility]. GFR/1.73 sq M.predicted among non-blacks MDRD (S/P/Bld) [Vol rate/Area] 98 mL/min/{1.73_m2} Normal [facility], [facility].; [facility] Glucose [Mass/Vol] 114 mg/dL Abnormal 65 - 99 mg/dL [facility].; [place] [employer] [facility] Potassium [Moles/Vol] 4.2 mmol/L Normal 3.5 - 5.3 mmol/L [facility], [facility].; [facility] Protein [Mass/Vol] 6.8 g/dL Normal 6.1 - 8.1 g/dL [facility], [facility].; [facility] Sodium [Moles/Vol] 138 mmol/L Normal 135 - 146 mmol/L [facility], [facility].; [place] [employer] [facility] Triglyceride [Mass/Vol] 100 mg/dL Normal [facility], [facility].; [place] [employer] [facility] Urea nitrogen [Mass/Vol] 17 mg/dL Normal 7 - 25 mg/dL [facility], [facility].; [facility], [facility]. No Panel Informationon 10-06 BUN/CREATININE RATIO SEE NOTE: Normal 6 - 22 [facility]; [facility] CHOL/HDLC RATIO 4.1 Normal [facility]; [facility] GLOBULIN 2.3 Normal 1.9 - 3.7 [facility]; [facility], [facility] NON HDL CHOLESTEROL 183 Abnormal [facility]; [facility] PSA, TOTAL 6.04 ng/mL Abnormal [facility]; [facility], [facility] Laboratory - Chemistry and C hemistry - challengeon 12-15-2022 Albumin [Mass/Vol] 4.4 g/dL Normal 3.6 - 5.1 g/dL [facility]; [facility], [facility] Albumin/Globulin [Mass ratio] 2.1 {ratio} Normal 1.0 - 2.5 [facility]; [facility] ALP [Catalytic activity/Vol] 112 U/L Normal 35 - 144 U/L [facility]; [facility], [facility]. ALT [Catalytic activity/Vol] 12 U/L Normal 9 - 46 U/L [facility]; [facility]. AST [Catalytic activity/Vol] 15 U/L Normal 10 - 35 U/L [facility]; [facility]. Bilirubin [Mass/Vol] 0.6 mg/dL Normal 0.2 - 1.2 mg/dL [facility]; [facility] Calcium [Mass/Vol] 9.3 mg/dL Normal 8.6 - 10. 3 mg/dL [facility]; [facility] Chloride [Moles/Vol] 106 mmol/L Normal 98 - 110 mmol/L [facility]; [facility], [facility] Cholesterol [Mass/Vol] 225 mg/dL Abnormal [facility]; [facility], [facility] Cholesterol in HDL [Mass/Vol] 54 mg/dL Normal [facility]; [facility] Cholesterol in LDL [Mass/Vol] 144 mg/dL Abnormal [facility]; [facility] CO2 [Moles/Vol] 28 mmol/L Normal 20 - 32 mmol/L [facility], [facility] Creatinine [Mass/Vol] 0.80 mg/dL Normal 0.70 - 1.35 mg/dL [facility], [facility] GFR/1.73 sq M.predicted among non-blacks MDRD (S/P/Bld) [Vol rate/Area] 97 mL/min/{1.73_m2} Normal [facility], [facility].; [facility], [facility] Glucose [Mass/Vol] 92 mg/dL Normal 65 - 99 mg/dL [facility].; [facility], [facility]. Potassium [Moles/Vol] 4.3 mmol/L Normal 3.5 - 5.3 mmol/L [facility], [facility].; [facility], [facility] Protein [Mass/Vol] 6.5 g/dL Normal 6.1 - 8.1 g/dL [facility].; [facility], [facility] Sodium [Moles/Vol] 142 mmol/L Normal 135 - 146 mmol/L [facility], [facility].; [facility], [facility]. Triglyceride [Mass/Vol] 148 mg/dL Normal [facility], [facility]. Urea nitrogen [Mass/Vol] 18 mg/dL Normal 7 - 25 mg/dL [facility], [facility].; [facility], [facility] Laboratory - Hematology and Cell countson 12-15-2022 Basophils (Bld) [#/Vol] 0.031 10*3/uL Normal 0 - 200 {cells/uL} [facility], [facility]. Basophils/100 WBC (Bld) 0.6 % Normal [facility], [facility]. Eosinophils (Bld) [#/Vol] 0.01 10*3/uL Abnormal 15 - 500 {cells/uL} [facility], [facility].; [facility], [facility]. Eosinophils/100 WBC (Bld) 0.2 % Normal [facility], [facility] Erythrocyte distribution width (RBC) [Ratio] 14.1 % Normal 11.0 - 15.0 % [facility].; [place] [employer], [facility]. Hematocrit (Bld) [Volume fraction] 41.7 % Normal 38.5 - 50.0 % [facility].; [place] [employer] [facility], [facility]. Hemoglobin (Bld) [Mass/Vol] 13.3 g/dL Normal 13.2 - 17.1 g/dL [facility].; [facility], [facility]. Lymphocytes (Bld) [#/Vol] 1.17 10*3/uL Normal 850 - 3900 {cells/uL} [facility], [facility].; [place] [employer], [facility]. Lymphocytes/100 WBC (Bld) 22.5 % Normal [facility].; [place] [employer] [facility], [facility]. MCH (RBC) [Entitic mass] 27.0 pg Normal 27.0 - 33.0 pg [facility].; [place] [employer], [facility]. MCHC (RBC) [Mass/Vol] 31.9 g/dL Abnormal 32.0 - 36.0 g/dL [facility].; [place] [employer], [facility]. MCV (RBC) [Entitic vol] 84.8 fL Normal 80.0 - 100.0 fL [place] [employer] [facility].; [place] [employer], [facility]. Monocytes (Bld) [#/Vol] 0.385 10*3/uL Normal 200 - 950 {cells/uL} [place] [employer], [facility].; [employer], [facility]. Monocytes/100 WBC (Bld) 7.4 % Normal [facility].; [place] [employer], [facility]. Neutrophils (Bld) [#/Vol] 3.604 10*3/uL Normal 1500 - 7800 {cells/uL} [place] [employer] [facility].; [place] [employer], [facility]. Neutrophils/100 WBC (Bld) 69.3 % Normal [place] [employer] [facility].; [place] [employer], [facility]. Platelet mean volume (Bld) [Entitic vol] 11.3 fL Normal 7.5 - 12.5 fL [place] [employer] [facility].; [employer], [facility]. Platelets (Bld) [#/Vol] 230 10*3/uL Normal 140 - 400 [employer]. RBC (Bld) [#/Vol] 4.92 10*6/uL Normal 4.20 - 5.8 0 {Million/uL} [employer] WBC (Bld) [#/Vol] 5.2 10*3/uL Normal 3.8 - 10.8 [employer]. No Panel Informationon 12-15 BUN/CREATININE RATIO SEE NOTE: Normal 6 - 22 [place] [employer]. CHOL/HDLC RATIO 4.2 Normal [facility]; [employer]. GLOBULIN 2.1 Normal 1.9 - 3.7 [employer]; [employer]. NON HDL CHOLESTEROL 171 Abnormal [facility] [employer]. PSA, TOTAL 1.32 ng/mL Normal [employer]; [employer]. PROSTATE BXon 03-27-2022 PROSTATE BX - -------- Patient Age/Sex Location Account Attending Physician -------- JUSTICE MORENO 67/M LABSPEC [id number] Dr. Jesus Brock MD -------- Specimen: [id number] Received: 03/27/22 Status: ROBINSON Jonas Num: [id number] Spec Type: PROST BX Subm Dr: Dr. Jesus Brock MD HEADER OPERATION: Prostate biopsy PRE-OP DIAGNOSIS: Elevated PSA TISSUE SUBMITTED: A - Right apex, B - Right mid, C - Right base, D - Left apex, E - Left mid, F - Left base -------- MICROSCOPIC DIAGNOSIS A. Right prostate, apex, core biopsy: Prostatic tissue, negative for malignancy. Focal atrophy and mild chronic inflammation. B. Right prostate, mid, core biopsy: Prostatic tissue, negative for malignancy. C. Right prostate, base, core biopsy: Prostatic tissue, negative for malignancy. D. Left prostate, apex, core biopsy: Prostatic tissue, negative for malignancy. Focal atrophy and mild chronic inflammation. E. Left prostate, mid, core biopsy: Prostatic tissue, negative for malignancy. Focal atrophy and mild chronic inflammation. F. Left prostate, base, core biopsy: Prostatic tissue, negative for malignancy. Focal mild chronic inflammation. / 03/31/22 MICROSCOPIC DESCRIPTION Slides are reviewed. GROSS DESCRIPTION A - Received is one container designated prostate, right apex. The specimen consists of two elongated fragments of light ely-white soft tissue measuring 1.3 and 1.8 cm in length and 0.1 cm in diameter. The specimen is totally submitted in one cassette. B - Received is one container designated prostate, right mid. The specimen consists of two elongated fragments of light ely-white soft tissue measuring 1 and 1.8 cm in length and 0.1 cm in diameter. The specimen is totally submitted in one cassette. C - Received is one container designated prostate, right base. The specimen consists of two elongated fragments of light ely-white soft tissue measuring 1.3 and 1.8 cm in length and 0.1 cm in diameter. The specimen is totally submitted in one cassette. -------- Patient Age/Sex Location Account Attending Physician -------- JUSTICE MORENO 67/M LABSPEC [id number] Dr. Jesus Brock MD -------- D - Received is one container designated prostate, left apex. The specimen consists of two elongated fragments of light ely-white soft tissue each measuring 1.8 cm in length and 0.1 cm in diameter. The specimen is totally submitted in one cassette. E - Received is one container designated prostate, left mid. The specimen consists of two elongated fragments of light ely-white soft tissue each measuring 1.5 cm in length and 0.1 cm in diameter. The specimen is totally submitted in one cassette. F - Received is one container designated prostate, left base. The specimen consists of two elongated fragments of light ely-white soft tissue measuring 1 and 1.6 cm in length and 0.1 cm in diameter. The specimen is totally submitted in one cassette. / SJ:rg 03/28/2022 TC:3 CPT: G0146 -------- Patient Age/Sex Location Account Attending Physician -------- JUSTICE MORENO 67/M LABSPEC [id number] Dr. Jesus Brock MD -------- Signed (signature on file) Dr. Javier Munoz MD 03/31/22 1203 -------- Normal [facility] Comment on above: Performed By: #### P PROSB #### [facility] Laboratory [address] [place], [address] Abdomen/Pelvis without Conto n 03-12-2022 Abdomen/Pelvis without Cont [facility] [address] [place] [address] Abdomen/Pelvis without Cont MR#: [id number] Acct: [id number] Name: JUSTICE MORENO Rep #: [id number] : [id number] 67 From: Madeline holcomb MD PCP: CHERYL High Status: REG CLI Study: Abdomen/Pelvis without Cont Date of Exam: 02/16 11/06 Exam# [id number] Ordering Dr: Jesus Brock MD HISTORY: HYDROCELE. TECHNIQUE: Helically acquired images were obtained of the abdomen and pelvis without oral or IV contrast. A radiation dose optimization technique was used for this scan. 555 images. COMPARISON: None.. FINDINGS: LOWER CHEST: Lung bases clear. BOWEL: Bowel including appendix nondilated. Colonic diverticulosis without focal pericolonic inflammatory change. PERITONEUM: No significant free fluid. LIVER/SPLEEN: Nonenlarged. GALLBLADDER/BILIARY TREE: Gallbladder present. KIDNEYS AND URETERS: No nephrolithiasis or hydronephrosis. PANCREAS/ADRENAL GLANDS: Unremarkable. VESSELS: No abdominal aortic aneurysm. Mild atherosclerosis. PELVIC ORGANS: Unremarkable. ABDOMINAL WALL: Large left inguinal hernia containing sigmoid colon extending into the scrotum without colonic wall thickening or surrounding inflammatory change. Trace left scrotal hydrocele. Large right inguinal hernia containing small bowel extending into the scrotum without small bowel wall thickening or surrounding inflammatory change. Tiny fat-containing umbilical hernia. BONES: Mild degenerative change. CT/Abdomen/Pelvis without Cont IMPRESSION: Large left inguinal hernia containing colon extending into the scrotum without evidence for colonic obstruction. Trace left scrotal hydrocele. Large right inguinal hernia containing small bowel extending into the scrotum without evidence for small bowel obstruction. Colonic diverticulosis without acute diverticulitis. Electronically Signed: Madeline Sloan MD at 9:23 EDT , CC: CHERYL Parsons; Dr. Jesus Brock MD [employer]: Signed Normal [facility] Laboratory - Chemistry and C hemistry - challengeon 10-17-2021 CRP [Mass/Vol] 4.7 mg/L Normal [facility].; [place] [employer] [facility], [employer] No Panel Informationon 10-17 PRETTY SCREEN, IFA Negative Normal [facility].; [place] [employer] [facility] PSA, TOTAL 5.13 ng/mL Abnormal [facility].; [place] [employer] [facility], [facility] RHEUMATOID FACTOR <14 Normal [facility]; [place] [employer] [facility], [facility] SED RATE BY MODIFIED WESTERGREN 2 mm/h Normal [facility]; [place] [employer] [facility], [facility] Laboratory - Chemistry and C hemistry - challengeon 08-28-2021 Albumin [Mass/Vol] 4.3 g/dL Normal 3.6 - 5.1 g/dL [facility].; [place] [employer] [facility], [facility]. Albumin/Globulin [Mass ratio] 1.9 {ratio} Normal 1.0 - 2.5 [facility].; [place] [employer], [employer]. ALP [Catalytic activity/Vol] 121 U/L Normal 35 - 144 U/L [facility].; [place] [employer] [facility], Inc[employer] ALT [Catalytic activity/Vol] 17 U/L Normal 9 - 46 U/L [facility].; [place] [employer], [employer]. AST [Catalytic activity/Vol] 19 U/L Normal 10 - 35 U/L [facility].; [place] [employer], [employer]. Bilirubin [Mass/Vol] 0.7 mg/dL Normal 0.2 - 1.2 mg/dL [facility], [facility].; [place] [employer], [employer]. Calcium [Mass/Vol] 9.5 mg/dL Normal 8.6 - 10. 3 mg/dL [facility], [facility].; [place] [employer] Chloride [Moles/Vol] 105 mmol/L Normal 98 - 110 mmol/L [facility], [facility].; [place] [employer], [employer]. Cholesterol [Mass/Vol] 245 mg/dL Abnormal [facility].; [facility], [facility]. Cholesterol in HDL [Mass/Vol] 57 mg/dL Normal [facility]; [facility], [facility] Cholesterol in LDL [Mass/Vol] 166 mg/dL Abnormal [facility]; [facility], [facility] CO2 [Moles/Vol] 27 mmol/L Normal 20 - 32 mmol/L [facility], [facility].; [facility], [facility] Creatinine [Mass/Vol] 0.90 mg/dL Normal 0.70 - 1.25 mg/dL [facility]; [facility], [facility]. GFR/1.73 sq M.predicted among blacks MDRD (S/P/Bld) [Vol rate/Area] 103 mL/min/{1.73_m2} Normal [facility]; [facility], [facility] Glucose [Mass/Vol] 105 mg/dL Abnormal 65 - 99 mg/dL [facility].; [facility], [facility] Potassium [Moles/Vol] 4.2 mmol/L Normal 3.5 - 5.3 mmol/L [facility]; [facility], [facility] Protein [Mass/Vol] 6.6 g/dL Normal 6.1 - 8.1 g/dL [facility]; [facility], [facility]. Sodium [Moles/Vol] 141 mmol/L Normal 135 - 146 mmol/L [facility], [facility].; [facility], [facility]. Triglyceride [Mass/Vol] 102 mg/dL Normal [facility]; [facility], [facility]. Urea nitrogen [Mass/Vol] 16 mg/dL Normal 7 - 25 mg/dL [facility], [facility] No Panel Informationon 08-28 BUN/CREATININE RATIO NOT APPLICABLE Normal 6 - 22 [facility]; [facility], [facility] CHOL/HDLC RATIO 4.3 Normal [facility].; [facility], [facility] eGFR NON-AFR. CITIZEN [place] 89 Normal [facility], [facility].; [facility], [facility] GLOBULIN 2.3 Normal 1.9 - 3.7 [facility]; [facility] NON HDL CHOLESTEROL 188 Abnormal [facility].; [employer] [facility], [employer]. PSA, TOTAL 4.45 ng/mL Abnormal [facility].; [facility] CORONAVIRUS PCR [CCL]on 03-19 REF LAB REPORT Positive Normal [facility] Comment on above: Performed By: #### [id number] #### [facility],[address] [place] [address] SEND TO ? YES Normal [facility] Comment on above: Performed By: #### [id number] #### [facility],[address] [place] [address] COVID 19 Result RECREATION PROFESSOR Positive Abnormal [facility] Comment on above: Result Comment: Posi tive for COVID19 (SARS CoV2) by PCR.(*) This test was developed and its performance characteristics determined by [facility] [place]. This test has been authorized by FDA under an Emergency Use Authorization (EUA). This test has been validated in accordance with the FDA's Guidance Document Policy for Diagnostics Testing in Laboratories Certified to Perform High Complexity Testing under CLIA prior to Emergency use Authorization for Coronavirus Disease 2019 during the Public Health Emergency issued on July 16, 2019. [facility] [address] [place] [address] Beck Mcdermott III, M.D. [id number] Performed By: #### 2 [id number] #### [facility],[address] [place] [id number] COVID 19 Source RECREATION PROFESSOR Nasopharyngeal Swab Normal [facility] Comment on above: Result Comment: Yosef ected on 04/06 AT 1638: Previously reported as RECREATION PROFESSOR Performed By: #### [id number] #### [facility],[address] [place] [id number] Coronavirus 2019on 0 COVID 19 Result RECREATION PROFESSOR Abnormal Negative for COVID19 (SARS CoV2) by PCR. [facility] Comment on above: Result Comment: Posi tive for This test was developed and its performance characteristics determined by [facility] [place]. This test has been authorized by FDA under an Emergency Use Authorization (EUA). This test has been validated in accordance with the FDA's Guidance Document Policy for Diagnostics Testing in Laboratories Certified to Perform High Complexity Testing under CLIA prior to Emergency use Authorization for Coronavirus Disease 2019 during the Public Health Emergency issued on July 16, 2019. COVID19 (SARS This test was developed and its performance characteristics determined by [facility] [place]. This test has been authorized by FDA under an Emergency Use Authorization (EUA). This test has been validated in accordance with the FDA's Guidance Document Policy for Diagnostics Testing in Laboratories Certified to Perform High Complexity Testing under CLIA prior to Emergency use Authorization for Coronavirus Disease 2019 during the Public Health Emergency issued on July 16, 2019. CoV2) by This test was developed and its performance characteristics determined by [facility] [place]. This test has been authorized by FDA under an Emergency Use Authorization (EUA). This test has been validated in accordance with the FDA's Guidance Document Policy for Diagnostics Testing in Laboratories Certified to Perform High Complexity Testing under CLIA prior to Emergency use Authorization for Coronavirus Disease 2019 during the Public Health Emergency issued on July 16, 2019. PCR.(*) This test was developed and its performance characteristics determined by [facility] [place]. This test has been authorized by FDA under an Emergency Use Authorization (EUA). This test has been validated in accordance with the FDA's Guidance Document Policy for Diagnostics Testing in Laboratories Certified to Perform High Complexity Testing under CLIA prior to Emergency use Authorization for Coronavirus Disease 2019 during the Public Health Emergency issued on July 16, 2019. Coronavirus 2019on 0 COVID 19 Source RECREATION PROFESSOR Normal [facility] Comment on above: Result Comment: Naso pharyngeal Corrected on 04/06 AT 1638: Previously reported as RECREATION PROFESSOR Swab Corrected on 04/06 AT 1638: Previously reported as RECREATION PROFESSOR Laboratory - Cytologyon 05-18 Microscopic observation Cyto stain Nom (Cvx) Normal [facility] Vital Signs Date Time Vital Sign Value Performing Clinician Facility 10-13-2024 08:45-0400 Body height 171.45 cm Indira Pagan CCM [employer] [facility], [facility].; [employer] [facility]. 10-13-2024 08:45-0400 Body mass index (BMI) [Ratio] 35.07 kg/m2 [facility]agan [facility], [facility].; [employer] 10-13-2024 08:45-0400 Body surface area Derived from formula 2.15 m2 Indira Pagan [facility] [employer], [facility]. 10-13-2024 08:45-0400 Body weight 103.1 kg Indira Pagan [facility], Inc.; [employer] 10-13-2024 08:45-0400 Diastolic blood pressure 67 mm[Hg] Indira Pagan [facility] [employer] Comment on above: Patient Position: Si tting; Cuff Location: Right Arm; Cuff Size: Large 10-13-2024 08:45-0400 Heart rate 96 /min Indira Pagan [facility], [employer] Comment on above: Pattern: Regular 10-13-2024 08:45-0400 Systolic blood pressure 104 mm[Hg] Indira Pagan [facility] [employer] [employer] Comment on above: Patient Position: Si tting; Cuff Location: Right Arm; Cuff Size: Large 12-02-2022 08:27-0400 Body height 171.45 cm Bambi Mazariegos MA [employer] 12-02-2022 08:27-0400 Body mass index (BMI) [Ratio] 33.64 kg/m2 Bambi Mazariegos MA [employer] 12-02-2022 08:27-0400 Body surface area Derived from formula 2.11 m2 Bambi Mazariegos MA [employer] 12-02-2022 08:27-0400 Body weight 98.88 kg Bambi Mazariegos MA [facility].; [place] [employer] [facility] North[facility]. 12-02-2022 08:27-0400 Diastolic blood pressure 80 mm[Hg] Bambi Mazariegos MA [facility].; [employer]. Comment on above: Patient Position: Si tting; Cuff Location: Left Arm; Cuff Size: Standard 12-02-2022 08:27-0400 Heart rate 77 /min Bambi Mazariegos MA [facility].; [employer] Comment on above: Pattern: Regular 12-02-2022 08:27-0400 Systolic blood pressure 121 mm[Hg] Bambi Mazariegos MA [facility].; [place] [employer]. Comment on above: Patient Position: Si tting; Cuff Location: Left Arm; Cuff Size: Standard 11-15-2021 08:20-0400 Body weight 98.88 kg Lilly Velasquez MA [facility].; [place] [employer]. 11-15-2021 08:20-0400 Diastolic blood pressure 67 mm[Hg] Lilly Velasquez MA [facility].; [employer] Comment on above: Patient Position: Si tting; Cuff Location: Left Arm; Cuff Size: Standard 11-15-2021 08:20-0400 Heart rate 60 /min Lilly Velasquez MA [facility].; [employer] Comment on above: Pattern: Regular 11-15-2021 08:20-0400 Systolic blood pressure 125 mm[Hg] Lilly Velasquez MA [facility].; [employer] Comment on above: Patient Position: Si tting; Cuff Location: Left Arm; Cuff Size: Standard 09-05-2021 08:34-0400 Body height 171.45 cm Martha Fortune LPN [facility].; [place] [employer] [facility] North[facility]. 09-05-2021 08:34-0400 Body mass index (BMI) [Ratio] 33.64 kg/m2 Martha Fortune LPN [facility].; [place] [employer] [facility] North[facility]. 09-05-2021 08:34-0400 Body surface area Derived from formula 2.11 m2 Martha Fortune LPN [facility].; [employer] [facility], Inc[employer] 09-05-2021 08:34-0400 Body weight 98.88 kg Martha Fortune LPN [facility], [facility].; [employer] 09-05-2021 08:34-0400 Diastolic blood pressure 71 mm[Hg] Martha Fortune LPN [facility], [facility].; [employer], [employer]. Comment on above: Patient Position: Si tting; Cuff Location: Left Arm; Cuff Size: Standard 09-05-2021 08:34-0400 Heart rate 85 /min Martha Fortune LPN [facility], [facility].; [employer], [employer]. Comment on above: Pattern: Regular 09-05-2021 08:34-0400 Systolic blood pressure 116 mm[Hg] Martha Fortune LPN [facility], [facility].; [employer], [employer]. Comment on above: Patient Position: Si tting; Cuff Location: Left Arm; Cuff Size: Standard 02-18-2021 11:55-0400 Body height 171.45 cm Samantha Cornejo RN [place] [employer] [facility], [employer] 02-18-2021 11:55-0400 Body mass index (BMI) [Ratio] 32.71 kg/m2 Samantha Cornejo RN [place] [employer] [facility], Inc.; [employer] 02-18-2021 11:55-0400 Body surface area Derived from formula 2.08 m2 Samantha Cornejo RN [place] [employer] [facility], Inc.; [employer] 02-18-2021 11:55-0400 Body temperature 98.3 [degF] Samantha Cornejo RN [place] [employer] [facility].; [employer], [employer]. Comment on above: Method: Tympanic 02-18-2021 11:55-0400 Body weight 96.16 kg Samantha Cornejo RN [place] [employer] [facility], Inc.; [employer] 02-18-2021 11:55-0400 Diastolic blood pressure 77 mm[Hg] Samantha Cornejo RN [employer]. Comment on above: Patient Position: Si tting; Cuff Location: Left Arm; Cuff Size: Standard 02-18-2021 11:55-0400 Heart rate 86 /min Samantha Cornejo RN [facility] [employer] Comment on above: Pattern: Regular 02-18-2021 11:55-0400 Systolic blood pressure 139 mm[Hg] Samantha Cornejo RN [place] [employer] Comment on above: Patient Position: Si tting; Cuff Location: Left Arm; Cuff Size: Standard 06-03-2016 16:34-0500 Body height 179.71 cm Cira Parsons PA-C Work Phone: [employer]. 06-03-2016 16:34-0500 Body mass index (BMI) [Ratio] 29.36 kg/m2 Cira Parsons PA-C Work Phone: [employer]. 06-03-2016 16:34-0500 Body surface area Derived from formula 2.14 m2 Cira Parsons PA-C Work Phone: [employer]. 06-03-2016 16:34-0500 Body weight 94.8 kg Cira Parsons PA-C Work Phone: [employer]. 06-03-2016 16:34-0500 Diastolic blood pressure 86 mm[Hg] Cira Parsnos PA-C Work Phone: [employer]. Comment on above: Patient Position: Si tting; Cuff Location: Left Arm; Cuff Size: Standard 06-03-2016 16:34-0500 Heart rate 77 /min Cira Parsons PA-C Work Phone: [employer]. Comment on above: Pattern: Regular 06-03-2016 16:34-0500 Systolic blood pressure 130 mm[Hg] Cira Parsons PA-C Work Phone: [employer]. Comment on above: Patient Position: Si tting; Cuff Location: Left Arm; Cuff Size: Standard 11-17-2011 16:09-0400 Body height 179.71 cm Cira Parsons PA-C Work Phone: [employer]. 11-17-2011 16:09-0400 Body mass index (BMI) [Ratio] 28.15 kg/m2 Cira Parsons PA-C Work Phone: [employer]; [employer]. 11-17-2011 16:09-0400 Body surface area Derived from formula 2.11 m2 Cira Parsons PA-C Work Phone: [employer]; [employer]. 11-17-2011 16:09-0400 Body temperature 97.8 [degF] Cira Parsons PA-C Work Phone: [employer]. Comment on above: Method: Tympanic 11-17-2011 16:09-0400 Body weight 90.9 kg Cira Parsons PA-C Work Phone: [employer]. 11-17-2011 16:09-0400 Diastolic blood pressure 66 mm[Hg] Cira Parsons PA-C Work Phone: [employer]. Comment on above: Patient Position: Si tting; Cuff Location: Left Arm; Cuff Size: Standard 11-17-2011 16:09-0400 Heart rate 67 /min Cira Parsons PA-C Work Phone: [employer]; [employer] Comment on above: Pattern: Regular 11-17-2011 16:09-0400 Systolic blood pressure 113 mm[Hg] Cira Parsons PA-C Work Phone: [employer] [facility] Comment on above: Patient Position: Si tting; Cuff Location: Left Arm; Cuff Size: Standard Encounters Encounter Date Encounter Type Care Provider Facility Start: 10-13-2024 End: 10-13-2024 Patient encounter procedure Cira Parsons PA-C [facility] Start: 10-06-2024 End: 10-06-2024 Orders Cira Parsons [facility]C [facility] Start: 09-05-2024 End: 09-05-2024 Orders Cira Parsons PA-C [facility] Start: 12-16-2022 End: 12-16-2022 Medication Cira Parsons PA-C Work Phone: [facility] Start: 12-15-2022 End: 12-15-2022 Orders Cira Parsons PA-C Work Phone: [employer] Start: 12-02-2022 End: 12-02-2022 Patient encounter procedure Cira J Parsons [facility]-C [facility] Start: 03-27-2022 End: 03-27-2022 Patient encounter procedure [facility], Specimen Start: 03-27-2022 End: 03-27-2022 ambulatory Cira Parsons [facility] Work Phone: Start: 03-12-2022 End: 03-12-2022 ambulatory Cira Parsons [facility] Work Phone: Start: 03-12-2022 End: 03-12-2022 Patient encounter procedure [facility]-Cat Scan, [facility] Start: 11-15-2021 End: 11-15-2021 Office outpatient visit 15 minutes Cira Parsons PA-C Work Phone: [employer] Start: 10-17-2021 End: 10-17-2021 Orders Cira Parsons PA-C [facility] Start: 09-05-2021 End: 09-05-2021 Periodic preventive med est patient 65yrs& older Cira Parsons PA-C Work Phone: [facility] [employer] Start: 09-05-2021 End: 09-05-2021 Physical examination Cira Parsons PA-C Work Phone: [employer]; [employer] Start: 08-28-2021 End: 08-28-2021 Orders Cira Parsons PA-C [facility] Start: 08-26-2021 End: 08-26-2021 Orders Cira Parsons PA-C Work Phone: [place] [employer] Start: 02-18-2021 End: 02-18-2021 Office outpatient new 30 minutes Cira Parsons PA-C Work Phone: [employer] Start: 04-04-2020 End: 04-04-2020 Patient encounter procedure GERA Esteves MARCIE [facility] Start: 06-10-2016 End: 06-10-2016 Nursing evaluation of patient and report Cira Parsons PA-C [facility] Start: 06-03-2016 End: 06-04-2016 Patient encounter procedure Cira Parsons PA-C Work Phone: [employer] Start: 11-17-2011 End: 11-17-2011 Patient encounter procedure Cira Parsons PA-C Work Phone: [facility] Indira AMBROCIO [facility] Patient encounter procedure Cira J Parsons PA-C Work [facility]: [facility] [employer] Physical examination Samantha Cornejo RN [facility] [place] [employer] Procedures Date Procedure Procedure Detail Performing Clinician Start: 10-13-2024 End: 10-13-2024 Adv care pln/ no alt dcsn mkr docd or refusal Cira Livan Parsons PA-C Work Phone: Start: 10-13-2024 End: 10-13-2024 Depression screening Cira Livan Parsons PA-C Work Phone: Start: 10-13-2024 End: 10-13-2024 Falls risk assessment documented Cira Livan Parsons PA-C Work Phone: Start: 10-13-2024 End: 10-13-2024 Pos clin depres scrn f/u doc Cira Livan Parsons PA-C Work Phone: Start: 10-13-2024 End: 10-13-2024 PPPS, subseq visit Cira Livan Parsons PA-C Work Phone: Start: 10-13-2024 End: 10-13-2024 Pt falls assess docd 2/> falls/fall w/injury/yr Cira Livan Parsons PA-C Work Phone: Start: 12-02-2022 End: 12-02-2022 Adv care pln/ no alt dcsn mkr docd or refusal Cira Livan Parosns PA-C Work Phone: Start: 12-02-2022 End: 12-02-2022 Depression screening Cira Livan Parsons PA-C Work Phone: Start: 12-02-2022 End: 12-02-2022 Falls risk assessment documented Cira Livan Parsons PA-C Work Phone: Start: 12-02-2022 End: 12-02-2022 PPPS, subseq visit Cira Livan Parsons PA-C Work Phone: Start: 12-02-2022 End: 12-02-2022 Pt falls assess docd w/o fall/injury past year Cira Livan Parsons PA-C Work Phone: Start: 12-02-2022 End: 12-02-2022 Scr dep neg, no plan reqd Cira J Parsons PA-C Work Phone: Start: 03-12-2022 CT of abdomen and pe lvis without contrast Start: 09-05-2021 End: 09-05-2021 Depression screening Cira Parsons PA-C Work Phone: Start: 09-05-2021 End: 09-05-2021 Scr dep neg, no plan reqd Cira Parsons PA-C Work Phone: Start: 06-10-2016 End: 06-10-2016 Removal sutures under anesthesia same surgeon FLOAT NURSE Start: 06-03-2016 End: 06-04-2016 Exc b9 lesion mrgn xcp sk tg t/a/l 0.5 cm/< Sam Galarza MD Work Phone: Start: 11-17-2011 End: 11-17-2011 Exc b9 lesion mrgn xcp sk tg s/n/h/f/g 0.5 cm/< Bre Santamaria PA-C Work Phone: Plan of Treatment Date Care Activity Detail Author Start: 10-13-2024 Patient encounter procedure Medical; PHYSICAL - awv [employer] Start: 13-Oct-2024 08:30-04:00 BERNY Parsons Appointment Request [facility] Start: 10-06-2024 Assay of prostate sp ecific antigen total PSA TOTAL (PROSTATE SPECIFIC ANTIGEN) ([id number]) Start: 06-Oct-2024 14:53-04:00 Request [facility]; [facility] Start: 10-06-2024 Lipid panel LIPID PANEL ([id number]) Start: 06-Oct-2024 14:52-04:00 Request [employer]; [facility] Start: 10-06-2024 Comprehensive metabo lic panel CMP w/ GFR* ([id number]) Start: 06-Oct-2024 14:52-04:00 Request [employer]; [employer]. Start: 10-06-2024 Nursing evaluation o f patient and report Medical; Nurse visit - fasting BW rjb [employer]. Start: 06-Oct-2024 08:30-04:00 NURSE, FLOAT Appointment Request [facility], [employer] Payers Date Payer Category Payer Self-pay 2022 Unknown [id number] 1955 Unknown [id number] Private Health Insurance [id number] Unknown [id number] Unknown [id number] Unknown [facility] Social History Date Type Detail Facility Tobacco smoking stat [facility] Unknown if ever smoked [facility] Work Phone: Start: 1955 Sex Assigned At Male W [facility] Work Phone: Tobacco Use: Tobacco Use: ; F ormer smoker. [facility] Ex-smoker [facility] [employer]; [facility], [employer]. Work Phone: Evaluation note Note Date & Type Note Facility Evaluation note No assessment information availa ble [facility] Work Phone: Summary Purpose Family History No Family History Records FoundNo Family History Records FoundNo Family History Records FoundNo Family History Records Found Advance Directives No Advanced Directives Records FoundNo Advanced Directives Records FoundNo Advanced Directives Records FoundNo Advanced Directives Records Found Chief Complaint and Reason for Visit Chief Complaint HYDROCELE Additional Source Comments (unrecognized sect ion and content) No Status Records FoundNo Status Records FoundNo Status Records FoundNo Status Records Found INFORMATION SOURCE (unrecogn ized section and content) DATE CREATED AUTHOR 04/07/2020 [facility] DATE CREATED AUTHOR AUTHOR'S ORGANIZ ATION 04/09/2020 [facility] DATE CREATED AUTHOR AUTHOR'S ORGANIZ ATION 03/31/2022 [facility] DATE CREATED AUTHOR AUTHOR'S HILARY ATION 10/13/2024 [facility] Goals (unrecognized section and content) Goals may be documented in a n alternate sectionGoals may be documented in an alternate section FOR RECORDS PERTAINING TO PATIENTS WHO ARE OR HAVE BEEN ENROLLED IN A CHEMICAL DEPENDENCY/SUBSTANCEABUSE PROGRAM, SOME INFORMATION MAY BE OMITTED. This clinical summary was aggregated from multiple sources. Caution should be exercised in using it in the provision of clinical care. This summary normalizes information from multiple sources, and as a consequence, information in this document may materially change the coding, format and clinical context of patient data. In addition, data may be omitted in some cases. CLINICAL DECISIONS SHOULD BE BASED ON THE PRIMARY CLINICAL RECORDS. [facility] [employer] provides no warranty or guarantee of the accuracy or completeness of information in this document.
[2024-11-12 10:14] LABS: ALB/GLOB Ratio 1.4 RATIO (0.9-2.4); AST(SGOT) 21 U/L (<=37); Alanine Aminotransfer ALT/SGPT 20 U/L (<=46); Albumin, Serum 4.1 g/dL (3.4-4.8); Alkaline Phosphatase 126 U/L (40-129); Anion Gap 16 (5-15); BUN 20 mg/dL (4-19); BUN/Creat Ratio 20.6 RATIO (10-20); Calcium,Total 9.7 mg/dL (7.6-11.0); Carbon Dioxide 22.7 mmol/L (21.0-32.0); Chloride 98 mmol/L (98-108); Creatinine, Serum 0.97 mg/dL (0.70-1.20); EST Glomerular Filtration Rate 85 (>60); Estimated Creatinine Clearance 86.33 ml/min (50-250); Glucose 192 mg/dL (70-99); Lipase 14 U/L (13-75); Potassium 3.3 mmol/L (3.3-5.1); Protein, Total 7.1 g/dL (5.9-8.4); Sodium Level 137 mmol/L (133-145)
[2024-11-12] MEDS: Piperacil/Tazobactam 4.5 GM in 0.9% Normal Saline (100mL MB+) 100 ML IV (11:23)
[2024-11-12 11:39] LABS: Lactic Acid < 1.0 mmol/L (0.0-2.0)
[2024-11-12 11:51] LABS: Bacteria 0 SEEN /hpf (None Seen); Mucous, Urine 0 SEEN /hpf (<or=2+); Red Blood Cells-Urine 0 SEEN /hpf (0-5); Squamous Epithelial Cells - UA 0 SEEN /hpf (0-5)
[2024-11-12 12:10] LABS: Color, Urine Yellow (Yellow); Glucose, Dipstick Normal (Normal); Ketone-Dipstick 5 mg/dl (Negative); Leukocyte Esterase-Dipstick 25 /ul (Negative); Nitrite-Dipstick Positive (Negative); Occult Blood-Urine 25 /ul (Negative); Protein-Dipstick 30 mg/dl (Negative); Urine Bilirubin Dipstick Negative (Negative); Urine Clarity Clear (Clear); Urine Urobilinogen 4 mg/dl (Normal); Urine pH 6.5 (5.0 - 8.0)
--- NOTE | 2024-11-12 12:40 | PCA ---
CALLED [facility] @ [phone] THEY CALLED BACK [phone] AND WE ARE JUST WAITING ON A BED.
[2024-11-12 12:56] LABS: White Blood Cells 0-5 SEEN /hpf (0-5)
[2024-11-12] MEDS: Acetaminophen 650 MG Suppository RC (13:06)
--- NOTE | 2024-11-12 13:22 | CON.PCM.SX_ITS ---
Assessment & Plan Assessment/Plan (1) Strangulated inguinal hernia: PLAN: Plan The patient is a 69-year-old male who presents to the emergency department with a longstanding extremely large right-sided inguinal hernia. He also has a very large left inguinal hernia as well. This hernia has been nonreducible for many years. This became acutely painful about 5 days ago. This was associated with nausea and vomiting. Patient presented to the emergency department and CT scan showed an incarcerated right inguinal hernia that is extremely large. This is nonreducible. This is causing a small bowel obstruction and there is some thickening of the involved loops of bowel along with fluid raising suspicion for strangulation. Certainly this hernia needs prompt surgical attention however due to its extreme size, I would recommend that this be addressed by a dedicated hernia surgeon as this would be a fairly challenging operation both in terms of reducing the hernia but more importantly this will require a more complex repair especially if there is any degree of ischemia to the involved loops of bowel. I suspect the bowel is certainly inflamed but suspect it is most likely still viable given his symptoms and exam. I explained to the patient and his that I feel that it may be in his best interest to have this repaired at a tertiary center by a dedicated hernia surgeon but certainly if this is not feasible then we may need to do the repair here at [facility]. This was discussed with the ER attending as well. We will make arrangements to transfer but may need to operate here at [place] if a tertiary center bed is not available. All parties are in agreement with this plan. It appears that the patient was accepted to leaving [facility]. Patient currently waiting transfer bed HPI Consult Data Date of Consult: 11/12/24 HPI Narrative Reason for Consultation: Incarcerated right inguinal hernia HPI Narrative: CAROLYN NUÑEZ, is a 69 M who presents to the [facility] ER this morning with 5 days of abdominal and right groin/scrotal pain. Patient states that he has a known extremely large inguinal hernia involving the right side as well as another large hernia on the left. He states that these hernias generally only cause him mild discomfort. He has never seen a surgeon to discuss repair. About 5 days ago he states that he was lifting a heavy object and noticed significant pain in the right groin. Patient did not seek any type of medical attention despite this pain. Over the last several days he realized that this was not going to become any better and so he presented to the emergency department this morning. He stated that he had been having some nausea and vomiting throughout the past several days. He states that this hernia is only slightly larger than normal but the pain is certainly more significant. He states that the pain today is really no worse than what it was the past couple of days. He was seen and evaluated by the ER staff. He had a slightly elevated white count at about 12-13,000. Lactate was normal. CT scan of the abdomen pelvis revealed an extremely large right inguinal hernia containing loops of small bowel as well as colon. There was also fluid within the hernia sac. The involved loops of bowel did exhibit thickening raising concern for possible strangulation/ischemia. Also, bowel gas pattern seems to be consistent with small bowel obstruction secondary to this hernia. I was asked to see and evaluate the patient in the emergency department. Currently he is comfortable and in no acute distress. He states that his pain is fairly significant in the right scrotum with palpation. He also endorses diffuse abdominal discomfort as well. Patient states that he has had these hernias for many years. He states that they have been nonreducible for at least the past 3 to 4 years. [facility] Medical History (Updated 11/12/24 @ 11:[address] Shahbaz Villegas DO) Right inguinal hernia Allergy/AdvReac Type Severity Reaction Status Date / Time No Known Allergies Allergy Verified 11/12/24 09:43 Surgical History no surgical history Social History Smoking Status: Never smoker Physical Exam Narrative He is alert and oriented x 3. He is in no acute distress. Head is normocephalic and atraumatic. Pupils equal round and reactive to light. Abdomen is soft and mildly distended. He does have mild diffuse tenderness to palpation. Examination of the groin reveals extremely large bilateral inguinal hernias. The right side is certainly more severe. His scrotum is about the size of a small basketball. The right side hernia is nonreducible in any way. Palpation causes significant pain and discomfort. The skin of the scrotum appears hyperemic/pink but does not appear to be cellulitic. Lab / Micro Data 11/12/24 09:10 11/12/24 09:10 Labs: Laboratory Results - last 24 hr 11/12/24 09:10: WBC 12.7 H, RBC 5.12, Hgb 14.1, Hct 42.8, MCV 83.6, MCH 27.5, MCHC 32.9, RDW Std Deviation 43.6, RDW Coeff of Devorah 14.3, Plt Count 316, MPV 11.0, Immature Gran % (Auto) 0.400, Neut % (Auto) 85.5 H, Lymph % (Auto) 5.8 L, [place] % (Auto) 8.1, Eos % (Auto) 0.0, Baso % (Auto) 0.2, Absolute Neuts (auto) 10.8 H, Absolute Lymphs (auto) 0.74 L, Nucleated RBC % 0, Sodium 137, Potassium 3.3, Chloride 98, Carbon Dioxide 22.7, Anion Gap 16 H, BUN 20 H, Creatinine 0.97, Estim Creat Clear Calc 86.33, Est GFR (MDRD) Non-Af 85, BUN/Creatinine Ratio 20.6 H, Glucose 192 H, Calcium 9.7, Total Bilirubin 1.50 H, AST 21, ALT 20, Alkaline Phosphatase 126, Total Protein 7.1, Albumin 4.1, Globulin 3.0, Albumin/Globulin Ratio 1.4, Lipase 14 11/12/24 11:05: Lactic Acid < 1.0 11/12/24 11:45: Urine Color Yellow, Urine Clarity Clear, Urine pH 6.5, Ur Specific Darragh 1.010, Urine Protein 30 H, Urine Glucose (UA) Normal, Urine Ketones 5 H, Urine Occult Blood 25 H, Urine Nitrite Positive H, Urine Bilirubin Negative, Urine Urobilinogen 4 H, Ur Leukocyte Esterase 25 H, Urine RBC 0 SEEN, Urine WBC 0-5 SEEN, Ur Squamous Epith Cells 0 SEEN, Urine Bacteria 0 SEEN, Urine Mucus 0 SEEN Imaging Radiology Impression Abdomen/Pelvis CT 11/12/24 09:30 IMPRESSION: The right inguinal hernia containing small bowel and proximal colon with inflammation, fluid, and thickened and inflamed small bowel loops concerning for strangulation. Degree of small bowel wall inflammation concerning for enteritis of possibly ischemic etiology. Close loop within the right inguinal hernia is not entirely excluded. Proximal to the right inguinal hernia, the small bowel loops are dilated measuring up to 4.3 cm with air and fluid filled layering concerning for small bowel obstruction. The left inguinal hernia contains large bowel without evidence of strangulation or obstruction. Dr. Villegas was notified by Nadia Ortiz at 10:54 a.m. EST on 11/12/2024. Reading Location: [id number] Charges/Coding Visit Charges Inpatient E&M: 47448 Init Hosp L3
--- NOTE | 2024-11-12 16:00 | ED.RN ---
notified oral temp 101.6
[2024-11-12] MEDS: HYDROmorphone 1 MG/ML Syringe 0.5 MG IV (16:02)
--- NOTE | 2024-11-12 16:22 | PCA ---
CALLED TRANSFER LINE @ 0212 STILL NO BED READY YET
--- NOTE | 2024-11-12 17:00 | ED.RN ---
notified pt's temp is 101.3 orally.
[2024-11-12] MEDS: 0.9% Normal Saline (1000mL) 1,000 ML 125 ML IV (19:01)
[2024-11-12 20:01] LABS: Absolute Lymphocyte Count 0.63 X10^3/uL (0.83-4.51); Absolute Neutrophil Count 13.2 X10^3/uL (2.0-7.7); Basophil# 0.05 X10^3/uL; Basophil% 0.3 % (0-1); Hematocrit 42.1 % (40-54); Hemoglobin 13.6 g/dL (13.0-16.5); Lymphocyte # 0.63 X10^3/ul (0.83-4.51); Lymphocyte % 4.1 % (19-41); Mean Corp Hgb Conc 32.3 g/dL (32-36); Mean Corpuscular Hgb 26.8 pg (27.0-32.0); Mean Corpuscular Volume 82.9 fL (80-94); Mean Platelet Vol. 10.6 fl (6.2-12.0); Monocyte# 1.52 X10^3/uL; Monocyte% 9.8 % (0-10); NRBC Flagged by Analyzer 0 % (0-5); Neutrophil # 13.19 X10^3/uL (2.7-7.7); Neutrophil % 85.5 % (47-70); POSITIVE DIFFERENTIAL YES; Platelet Count 291 K/mm3 (150-450); RBC Distribution Width CV 14.6 % (11.6-14.6); RBC Distribution Width SD 43.7 fl (35.1-43.9); Red Blood Count 5.08 M/mm3 (4.6-6.2); White Blood Count 15.4 K/mm3 (4.4-11.0)
[2024-11-12] MEDS: Oxymetazoline 0.05% 1 SPRAY SPRAY.BTL 2 SPRAY NASAL (20:11)
[2024-11-12 20:15] LABS: Anion Gap 14 (5-15); BUN 20 mg/dL (4-19); BUN/Creat Ratio 20.6 RATIO (10-20); Carbon Dioxide 20.9 mmol/L (21.0-32.0); Chloride 103 mmol/L (98-108); Creatinine, Serum 0.96 mg/dL (0.70-1.20); EST Glomerular Filtration Rate 86 (>60); Estimated Creatinine Clearance 87.23 ml/min (50-250); Glucose 133 mg/dL (70-99); Potassium 3.8 mmol/L (3.3-5.1); Sodium Level 138 mmol/L (133-145)
[2024-11-12 20:25] LABS: Differential Indicated SCAN CRITERIA MET
[2024-11-12 20:28] LABS: Lactic Acid 1.4 mmol/L (0.0-2.0)
--- NOTE | 2024-11-12 20:30 | RAD_ITS ---
PROCEDURE: ABDOMEN SINGLE VIEW (PORTABLE) 11/12/2024 REASON FOR EXAM: NG INSERTION TECHNIQUE: ABDOMEN SINGLE VIEW (PORTABLE) COMPARISON: Same day CT abdomen pelvis. FINDINGS: Hardware: Interval gastric tube with side hole and tip overlying the expected body of the stomach. Bowel gas: Persistent dilation of the visualized small bowel loops within the upper abdomen. Bones: There are degenerative changes of the spine. RAD/Abdomen Single View (Portable) IMPRESSION: Gastric tube placement as described. Reading Location: [id number]
[2024-11-12 21:10] LABS: Differential Comment SCANNED
== END 2024-11-12 21:45 | disposition short-term general hospital (02) ==
PROVIDERS: Emergency Medicine; Emergency Provider Emergency Medicine; Visit Provider Emergency Medicine
DX: K40.30 Unilateral inguinal hernia, with obstruction, without gangrene, not specified as recurrent (principal)
CPT/HCPCS: 74018; 74177; 80048; 80053; 81001; 83605; 83690; 85025; 96361; 96365; 96375; 96376; 99284; Q9967; A4216; J2405